=== PATIENT | female | born 1945 | race Caucasian/White ===

== ENCOUNTER → 2018-03-31 10:21 | Outpatient (CLI) | payer MEDICARE, OTHER, SELFPAY ==
[2018-03-31 12:04] LABS: Estimated Glomerular Filt Rate > 60.0 mL/min (>60)
== END ==
PROVIDERS: PCP Family Medicine; Visit Provider Podiatrist
DX: R22.9 Localized swelling, mass and lump, unspecified (principal); M79.675 Pain in left toe(s)
CPT/HCPCS: 36415; 82565

== ENCOUNTER → 2018-04-07 13:04 | Outpatient (CLI) | payer MEDICARE, OTHER, SELFPAY ==
--- NOTE | 2018-04-07 | DI.MRI.S_ITS ---
PROCEDURE: MR FOOT LT WO/W CON INDICATIONS: PAINFUL MASS LEFT SECOND TOE TECHNIQUE: Noncontrast sagittal T1 spin echo and T2 fast spin echo with fat saturation, long-axis T1 spin echo and T2 fast spin echo with fat saturation; short-axis T1 spin echo, proton density fast spin echo, and T2 fast spin echo with fat saturation through the forefoot. Post-contrast short axis, long axis, and sagittal T1 spin echo with fat saturation through the forefoot. COMPARISON: None FINDINGS: Image quality: Excellent. Bones and joints: No suspicious osseous enhancement. No bone marrow contusions or metatarsal stress fractures. The sesamoid bones appear in expected positions, without internal edema. No metatarsophalangeal joint degeneration. Mild articular osteophyte formation and subchondral high T2 signal intensity adjacent to the 1st tarsometatarsal joint is present. No intraosseous lesions. Soft tissues: The visualized plantar foot muscles demonstrate normal signal and bulk. Within the volar/lateral aspect of the 2nd digit, adjacent to the middle phalanx, there is a well-circumscribed low T1 signal intensity focus measuring 17 mm anteroposterior by 8 mm craniocaudal by 11 mm transverse which demonstrates possible postcontrast enhancement, and is adjacent to the flexor digitorum longus tendon. Small amount of punctate low signal intensity foci are present within the mass.. The distal insertions of the peroneus brevis and longus tendons appear intact. The principal Lisfranc ligament appears intact. No soft tissue ganglion cysts or bursal fluid collections. Sagittal images demonstrate no evidence for plantar plate tears. 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 Histological confirmation is recommended to exclude less likely, more aggressive etiologies. Dictated by: Alba Arana M.D. on 04/07/2018 at 14:38 Approved by: Alba Arana M.D. on 04/07/2018 at 14:46
== END ==
PROVIDERS: PCP Family Medicine; Visit Provider Podiatrist
DX: R22.42 Localized swelling, mass and lump, left lower limb (principal); R22.32 Localized swelling, mass and lump, left upper limb
CPT/HCPCS: 73720; A9579

== ENCOUNTER → 2018-06-08 11:17 | Outpatient (CLI) | payer MEDICARE, OTHER, SELFPAY ==
--- NOTE | 2018-06-08 | DI.MRI.S_ITS ---
PROCEDURE: MR LUMBAR SPINE WO CON INDICATIONS: LUMBAR SPINE PAIN TECHNIQUE: Noncontrast sagittal T1 spin echo and T2 fast echo, sagittal STIR, axial T1 and T2 fast spin echo through the lumbar spine. In cases with scoliosis, additional coronal T2 fast spin echo may be performed. COMPARISON: None. FINDINGS: Image quality: Excellent. Alignment and Curvature: Grade 1 anterolisthesis is seen at L4-L5 and L5-S1. No definite associated pars defects can be seen. Bone Marrow: Marrow is of normal overall signal. No acute vertebral body compression fractures. Spinal Cord: Conus medullaris terminates at the L1 level. Visualized cord demonstrates normal signal and size. Paraspinous Soft Tissues: No paravertebral masses. T12-L1: Normal appearance. L1-L2: Normal appearance. L2-L3: No significant abnormality is seen. L3-L4: The disc height is well-preserved. Loss of disc signal is seen at this level. Moderate disc bulge is seen, which is eccentric to the left. Moderate facet joint hypertrophy is seen. There is moderate left-sided and mild right-sided neural foraminal narrowing seen. Mild central canal narrowing is seen. L4-L5: The disc height is well-preserved. Loss of disc signal is seen at this level. Moderate disc bulge is seen. Moderate facet hypertrophy is seen. Fluid can be seen within the facet joints themselves. There is moderate to severe bilateral neural foraminal narrowing seen. There is a degree of impingement seen upon the exiting nerve roots. Moderate central canal narrowing is seen. L5-S1: Mild loss of disc height is seen. Loss of disc signal is seen. Moderate disc bulge is seen, which is eccentric to the left. Moderate facet joint hypertrophy is seen. Osqy-ni-[id number] neural foraminal narrowing can be seen. No significant central canal narrowing is seen. 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 IMPRESSION: Multiple levels of lumbar spine degenerative change are seen, which are most prominent at the L4-L5 level, where there is moderate to severe bilateral neural foraminal narrowing and impingement upon the exiting L4 nerve roots. Mild grade 1 anterolisthesis seen at L4-L5 and L5-S1. Dictated by: Morgan Adorno M.D. on 06/08/2018 at 11:48 Approved by: Morgan Adorno M.D. on 06/08/2018 at 11:54
== END ==
PROVIDERS: PCP Family Medicine; Visit Provider Physical Medicine & Rehabilitation Pain Medicine
DX: M48.061 Spinal stenosis, lumbar region without neurogenic claudication (principal); M43.16 Spondylolisthesis, lumbar region; M43.17 Spondylolisthesis, lumbosacral region; M51.36 Other intervertebral disc degeneration, lumbar region; M54.5 Low back pain
CPT/HCPCS: 72148

== ENCOUNTER → 2018-08-13 09:03 | Outpatient (CLI) | payer MEDICARE, OTHER, SELFPAY ==
--- NOTE | 2018-08-13 | DI.NM.S_ITS ---
PROCEDURE: NM BONE 3 PHASE RADIOPHARMACEUTICAL: 20.9 mCi Tc-99m MDP IV. INDICATIONS: MECHANICAL LOOSENING OF PROSTETIC JOINT RIGHT TIBI TECHNIQUE: Multiple bone scintigrams were obtained after intravenous injection of Tc-99m MDP, including flow, blood pool, and delayed images centered to the region of interest. COMPARISON: [facility] [place], CR, KNEE SERIES RT, 05/13/2017, 13:20. [facility], [facility], XR KNEE ARTHRITIC SERIES RT, 05/20/2018, 13:20. [facility] [place], CR, XR PELVIS WITH LATERAL HIP RIGHT, 07/26/2018, 15:11. FINDINGS: Photopenic defect related to right knee arthroplasty. There is periprosthetic tracer activity on the delayed phase images only. No definite abnormal tracer activity in this region on the immediate flow and blood pool images. Para-articular uptake about the right knee is likely degenerative. IMPRESSION: No definite triple phase positivity to suggest hardware loosening or infection. If clinically warranted, continued surveillance with serial knee radiographs could be performed. Dictated by: Juan Herrera M.D. on 08/13/2018 at 14:55 Approved by: Juan Herrera M.D. on 08/13/2018 at 15:01
== END ==
PROVIDERS: PCP Family Medicine; Visit Provider Orthopaedic Surgery
DX: T84.032A Mechanical loosening of internal right knee prosthetic joint, initial encounter (principal)
CPT/HCPCS: 78315; A9503

== ENCOUNTER → 2018-11-18 10:26 | Outpatient (CLI) | payer MEDICARE, OTHER, SELFPAY ==
[2018-11-18 11:02] LABS: Add Manual Diff / Slide Review NO; Basophils Percent Auto 0.8 % (0-2); Eosinophils Percent Auto 4.3 % (2-4); Hemoglobin 13.3 g/dL (12.0-16.0); Lymphocytes Percent Auto 26.5 % (25-40); Mean Corpuscular HGB Conc 33.3 % (30-36); Mean Corpuscular Hemoglobin 30.1 PG (26-34); Mean Corpuscular Volume 90.4 fL (80-100); Monocytes Percent Auto 8.1 % (3-14); Neutrophils Absolute Auto 4200 /uL (1500-7000); Neutrophils Percent Auto 60.3 % (50-75); Platelet Count 280 X10^3/uL (150-400); Red Blood Cell Count 4.42 X10^6/uL (4.0-5.2); Red Cell Distribution Width 14.5 % (11.6-14.8); White Blood Cell Count 6.9 X10^3/uL (4.5-11.0)
[2018-11-18 11:15] LABS: Alanine Aminotransferase 31 IU/L (9-52); Albumin 4.6 g/dL (3.5-5.0); Albumin Globulin Ratio 1.5 (1.0-2.8); Alkaline Phosphatase 78 U/L (38-126); Aspartate Aminotransferase 24 IU/L (14-36); BUN Creatinine Ratio 37.1 (6-22); Bilirubin Total 1.1 mg/dL (0.2-1.3); Blood Urea Nitrogen 26 mg/dL (7-17); Calcium 9.7 mg/dL (8.4-10.2); Carbon Dioxide 26 mmol/L (22-32); Chloride 105 mmol/L (98-107); Cholesterol 207 mg/dL (140-199); Estimated Glomerular Filt Rate > 60.0 mL/min (>60); Glucose 99 mg/dL (80-110); HDL Cholesterol 71 mg/dL (40-60); HEMOLYSIS < 15 (0-50); LDL Cholesterol Calculated 114 mg/dL (<100); Potassium 4.4 mmol/L (3.4-5.1); Sodium 141 mmol/L (137-145); Total Protein 7.6 g/dL (6.3-8.2); Triglycerides 108 mg/dL (35-150)
[2018-11-18 11:56] LABS: Thyroid Stimulating Hormone 1.15 uIU/mL (0.47-4.68)
== END ==
PROVIDERS: PCP Family Medicine; Visit Provider Family Medicine
DX: I10 Essential (primary) hypertension (principal)
CPT/HCPCS: 36415; 80053; 80061; 84443; 85025

== ENCOUNTER → 2019-03-02 12:00 | Outpatient (CLI) | payer MEDICARE, OTHER, SELFPAY ==
[2019-03-04 14:48] LABS: Fecal Immunochemical Test NOT DETECTED (NOT DETECTED)
== END ==
PROVIDERS: PCP Family Medicine; Visit Provider Family Medicine
DX: Z12.11 Encounter for screening for malignant neoplasm of colon (principal)
CPT/HCPCS: 82274

== ENCOUNTER → 2019-07-01 11:06 | Outpatient (CLI) | payer MEDICARE, OTHER, SELFPAY ==
--- NOTE | 2019-07-01 11:10 | DI.RAD.S_ITS ---
PROCEDURE: XR CHEST 2V INDICATIONS: Productive cough TECHNIQUE: 2 views of the chest were acquired. COMPARISON: [facility], , CHEST 2 VIEW, 12/10/2010, 13:00. FINDINGS: Surgical changes and devices: Postoperative changes are present related to prior left shoulder arthroplasty.. Lungs and pleura: Increased attenuation within the right lung base is identified when compared to the prior study. There is also vague increased attenuation at the left lung base. No large effusion or pneumothorax is appreciated. Mediastinum: Mediastinal contours are normal. Heart size is normal. Bones and chest wall: No suspicious bony abnormalities. Soft tissues appear unremarkable. IMPRESSION: Probable developing right basilar pneumonia. Dictated by: Rip Valle M.D. on 07/01/2019 at 11:05 Approved by: Rip Valle M.D. on 07/01/2019 at 11:06
== END ==
PROVIDERS: PCP Family Medicine; Visit Provider Registered Nurse
DX: R05 Cough (principal)
CPT/HCPCS: 71046

== ENCOUNTER → 2019-07-08 10:53 | Outpatient (CLI) | payer MEDICARE, OTHER, SELFPAY ==
--- NOTE | 2019-07-08 10:56 | DI.RAD.S_ITS ---
PROCEDURE: XR CHEST 2V INDICATIONS: Cough TECHNIQUE: 2 views of the chest were acquired. COMPARISON: [facility], CR, XR CHEST 2V, 07/01/2019, 11:29. FINDINGS: Surgical changes and devices: Total left shoulder arthroplasty Lungs and pleura: Lungs are clear. No pleural effusions or pneumothorax. Mediastinum: Mediastinal contours are normal. Heart size is normal. Bones and chest wall: No suspicious bony abnormalities. Soft tissues appear unremarkable. IMPRESSION: No evidence acute pulmonary process. Dictated by: Yonny Stuart M.D. on 07/08/2019 at 11:05 Approved by: Yonny Stuart M.D. on 07/08/2019 at 11:05
== END ==
PROVIDERS: PCP Family Medicine; Visit Provider Registered Nurse
DX: R05 Cough (principal)
CPT/HCPCS: 71046

== ENCOUNTER → 2019-09-01 12:23 | Outpatient (CLI) | payer MEDICARE, OTHER, SELFPAY ==
--- NOTE | 2019-09-01 | DI.MRI.S_ITS ---
PROCEDURE: MR SHOULDER RT WO CON INDICATIONS: Other rupture of muscle (nontraumatic), left shoul TECHNIQUE: Noncontrast oblique coronal T2 fast spin echo with fat saturation, oblique sagittal T1 spin echo and T2 fast spin echo with fat saturation, axial T1 spin echo and T2 fast spin echo with fat saturation through the shoulder. COMPARISON: [facility], MR, SHOULDER WITHOUT CONTRAST, 12/10/2016, 13:20. FINDINGS: Image quality: Excellent. Rotator cuff: Full thickness small tear of the anterior supraspinatus tendon image 10 series 10 measuring 1-2 mm in AP dimension. Background supraspinatus tendinopathy and thickening. Infraspinatus tendinopathy with low-grade articular surface fraying. The teres minor appears intact. Subscapularis tendon appears intact. atrophy of the supraspinatus muscle. Fat infiltration of the infraspinatus muscle noted. Bones and bursae: No bone marrow contusions or fractures. Moderate acromioclavicular joint degeneration. Severe glenohumeral joint degeneration with subchondral cystic change and marrow edema. Extensive osteophytosis. Acromion demonstrates conventional anatomy, without an os acromiale. Capsule and soft tissues: Ill-defined macerated circumferential labral tear probably chronic Long head of the biceps tendon intact. The rotator interval appears normal, without fibrosis. Coracohumeral ligament intact. IMPRESSION: Small full-thickness tear involving the anterior supraspinatus tendon. Atrophy of the supraspinatus muscle. Infraspinatus tendinopathy with low-grade articular surface fraying. Severe glenohumeral degeneration. Ill-defined chronic circumferential labral tear. Dictated by: Juan Herrera M.D. on 09/01/2019 at 16:20 Approved by: Juan Herrera M.D. on 09/01/2019 at 16:27
== END ==
PROVIDERS: PCP Family Medicine; Visit Provider Orthopaedic Surgery
DX: M62.1 Other rupture of muscle (nontraumatic) (principal); M75.122 Complete rotator cuff tear or rupture of left shoulder, not specified as traumatic; M19.012 Primary osteoarthritis, left shoulder; S43.492A Other sprain of left shoulder joint, initial encounter
CPT/HCPCS: 73221

== ENCOUNTER → 2019-10-20 09:37 | Outpatient (CLI) | payer MEDICARE, OTHER, SELFPAY ==
[2019-10-20 10:28] LABS: Add Manual Diff / Slide Review NO; Basophils Absolute Auto 100 /uL (0-100); Eosinophils Absolute Auto 300 /uL (0-450); Eosinophils Percent Auto 5.2 % (2-4); Hematocrit 39.2 % (36-46); Hemoglobin 13.4 g/dL (12.0-16.0); Lymphocytes Absolute Auto 1500 /uL (1100-4500); Lymphocytes Percent Auto 24.8 % (25-40); Mean Corpuscular HGB Conc 34.2 % (30-36); Mean Corpuscular Hemoglobin 30.8 PG (26-34); Mean Corpuscular Volume 90.3 fL (80-100); Monocytes Absolute Auto 600 /uL (0-900); Monocytes Percent Auto 9.3 % (3-14); Neutrophils Absolute Auto 3700 /uL (1500-7000); Neutrophils Percent Auto 59.7 % (50-75); Platelet Count 302 X10^3/uL (150-400); Red Blood Cell Count 4.34 X10^6/uL (4.0-5.2); Red Cell Distribution Width 13.8 % (11.6-14.8); White Blood Cell Count 6.2 X10^3/uL (4.5-11.0)
[2019-10-20 11:00] LABS: Blood Urea Nitrogen 28 mg/dL (7-17); Calcium 10.3 mg/dL (8.4-10.2); Carbon Dioxide 24 mmol/L (22-32); Chloride 103 mmol/L (98-107); Estimated Glomerular Filt Rate > 60.0 mL/min (>60); Glucose 121 mg/dL (80-110); HEMOLYSIS < 15 (0-50); Potassium 4.4 mmol/L (3.4-5.1); Sodium 139 mmol/L (137-145)
[2019-10-20 12:10] LABS: Hemoglobin A1C% w Est Avg Glu 5.6 % (4.0-6.0)
[2019-10-20 13:11] LABS: Appearance Urine UA SL CLOUDY; Bilirubin Urine UA NEGATIVE (NEGATIVE); Color Urine UA YELLOW; Glucose Urine UA NEGATIVE (Negative); Ketones Urine UA NEGATIVE (NEGATIVE); Leukocyte Esterase Urine UA TRACE (NEGATIVE); Nitrite Urine UA NEGATIVE (Negative); Occult Blood Urine UA NEGATIVE (Negative); Protein Urine UA NEGATIVE (Negative); Urobilinogen Urine UA 0.2 E.U./dL (0.2)
[2019-10-20 13:19] LABS: RBC Urine 0-1/HPF (0-5/HPF); WBC Urine 1-5/HPF (0-5/HPF)
[2019-10-20 13:20] LABS: Bacteria Urine Few (2-10); Culture Indicated Urine Cult Not Indicated; Squamous Epithelial Cell Urine 5-10 /HPF (0-5/HPF)
== END ==
PROVIDERS: Family Provider Family Medicine; PCP Family Medicine; Visit Provider Orthopaedic Surgery
DX: Z01.818 Encounter for other preprocedural examination (principal); Z01.812 Encounter for preprocedural laboratory examination; R73.9 Hyperglycemia, unspecified; N39.0 Urinary tract infection, site not specified
CPT/HCPCS: 36415; 80048; 81001; 83036; 85025; 93005; 93010

== ENCOUNTER 2019-10-31 10:43 | Inpatient (IN) | payer MEDICARE, OTHER, SELFPAY ==
[2019-10-19 12:30] VITALS: BMI 48.6
[2019-10-31] VITALS (14 sets, daily range): BP systolic 100–166; BP diastolic 54–86; PULSE 83–98; RESP 14–22; TEMP 35.8–36.5; O2SAT 93–99; BMI 50.4
--- NOTE | 2019-10-31 10:52 | DI.RAD.S_ITS ---
PROCEDURE: XR SHOULDER RT 1V INDICATIONS: post op TECHNIQUE: 1 views of the shoulder were acquired. COMPARISON: [facility], , SHOULDER 1 VIEW LEFT, 02/17/2017, 16:41. FINDINGS: Expected postsurgical changes are present related to a reversed total shoulder arthroplasty. No periprostatic fractures are appreciated. No unexpected radiopaque foreign bodies are evident. A surgical drainage catheter is evident. There appears to be atelectasis within the right lung. IMPRESSION: Postoperative changes related to a right shoulder arthroplasty. Dictated by: Rip Valle M.D. on 10/31/2019 at 14:26 Approved by: Rip Valle M.D. on 10/31/2019 at 14:31
--- NOTE | 2019-10-31 11:03 | SUR.PREOP ---
Activated medication order in spite of PCN allergy in order to obtain PO medications.
[2019-10-31] MEDS: ACETAMINOPHEN 325 MG TABLET 975 MG PO ×3 (11:27→21:42)
[2019-10-31] MEDS: PREGABALIN 75 MG CAPSULE PO (11:27)
[2019-10-31] MEDS: CELECOXIB 200 MG CAPSULE PO (11:27)
[2019-10-31] MEDS: LACTATED RINGERS 1,000 ML 42 ML IV (11:29)
--- NOTE | 2019-10-31 12:18 | PM.PREOP ---
Pre-operative Note Interval Note History & Physical reviewed/Exam performed by Physician: Yes Changes to H&P: No
--- NOTE | 2019-10-31 12:24 | PM.OP.1 ---
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 Radiographic studies have revealed changes consistent with a rotator cuff tear and arthritis. They have elected to proceed with reverse total shoulder replacement after discussion of the risks benefits and alternatives. Risks discussed included but were not limited to: Failure to improve, instability, infection, nerve damage, deep venous thrombosis, pulmonary embolism, stroke, coma, myocardial infarction and . Surgeon: Wing Boss [employer] Processor: Garfield Mckeon Click Yes if Unassisted: No Anesthesia Type: General, Peripheral nerve block and Local Operative Notes Findings: Significant osteoarthritic change with large rotator cuff tear Closure Type: primary Specimen(s): none sent Prosthetic devices, grafts, tissues, transplants, or devices: Prosthetics used in this procedure were manufactured by the [employer] and included an RSP reverse total shoulder system with a 30 mm screw length glenoid base plate with 4 peripheral 14 mm locking bolts, a 36 mm neutral glenoid head with retaining screw, a small shell 10 mm Press-Fit humeral stem, and a 36 mm neutral E plus humeral socket insert. Applied: drain(s) and implant(s) Estimated Blood Loss (mL): 100 Blood products transfused: none Procedure in detail: The patient was seen in the preoperative area where they identified the right shoulder as the operative site and this was marked with my initials. They received preoperative antibiotics and underwent the induction of an interscalene block. They were taken to the operating room and placed on the operating room table in a supine position with the underwent the induction of a general anesthetic. There were then repositioned in the ?beach chair? position using a dedicated positioner. All pressure points were well padded. The knees were slightly bent to prevent tension on the sciatic nerves. The right arm was prepared from the fingertips to the base of the neck with ChloraPrep in the usual fashion and draped through sterile drapes. An approximately 15 cm incision was created starting at the clavicle just above the coracoid and going to the deltoid insertion. The deltopectoral interval was used to access the shoulder taking the vein to the medial side. The vein was protected throughout the case. The upper 1 cm of the pectoralis major was released. The biceps tendon was identified and used as a guide to releasing the remaining subscapularis. The biceps itself was released. The shoulder was dislocated and a proximal humeral osteotomy performed using an extramedullary guide. A proximal humeral protector was then placed. Retractors were placed access the glenoid. A 360 degree release was performed of the glenoid with care being taken to protect the axillary nerve. The guide was used to drill the guide hole in the center of the inferior glenoid. The tap was placed and used as a guide for the reamer. The tap was then removed and the glenoid base plate inserted. The peripheral locking screws were then placed through the appropriate guide. A trial glenoid head was applied. We then turned our attention to the humerus. The proximal humeral protector was removed. Cylindrical reamers were used to size the canal. Broaching was then performed beginning with a small broach and working up until a line to line fit with the reamer was obtained. The guide for the proximal metaphyseal reamer was then applied and the metaphysis was reamed appropriately. The trial metaphyseal portion of the body was then applied to the broach. Trial reductions were performed and the size of the glenoid head and the cup were optimized. Stability was checked in maximal internal and external rotation and range of motion was checked to allow access to the top of the head, internal rotation to an excess of 50? in the ?scarecrow position? and the ability to reach the groin. The appropriate final prosthetic components were then opened. The glenoid head was impacted into position and checked for rotational and axial stability before placing the set screw. The humeral prosthetic was then impacted into position. The humeral cup was placed. The joint was relocated and irrigated. A deep drain was placed. The deltopectoral interval was reapproximated with 0 Vicryl. Subcutaneous layer was closed with interrupted 3-0 Vicryl and skin with a running 3 0 V lock suture. Subcutaneous tissues were then infiltrated with 0.5% Marcaine for postoperative pain control. An Aquacel Ag dressing was applied and the patient's arm was placed in a sling. The patient was then transferred to the recovery room in good condition having tolerated the procedure well. Complications: none Post-operative Condition: stable Disposition: PACU Plan for aftercare: The patient will be maintained on a standard total shoulder replacement protocol with passive range of motion limited to 90 degrees forward flexion, 0 degrees external rotation at the side, 0 degrees abduction and internal rotation to the body. The patient will receive aspirin and sequential compression devices for DVT prophylaxis. The patient will be discharged home when safe for the home environment, likely tomorrow.
[2019-10-31] MEDS: VANCOMYCIN 1,000 MG/200 ML PIGGYBACK 200 MG IV (12:28)
[2019-10-31] MEDS: fentaNYL 100 MCG/2 ML INJ 50 MCG IV (12:40)
[2019-10-31] MEDS: MIDAZOLAM 2 MG/2 ML VIAL IV (12:46)
--- NOTE | 2019-10-31 12:54 | SUR.PREOP ---
Addendum entered by Johanne Manriquez R.N. 10/31/19 13:02: Patient awake and alert during procedure. No complications noted. Addendum entered by Johanne Manriquez R.N. 10/31/19 12:58: Block was started by Nurse Joshua Major. Block completed by Jolie Manriquez RN Original Note: Block start time [1230] . Monitoring initiated and maintained throughout procedure. Oxygen and medications given per anesthesiologist instructions. Patient remained stable throughout procedure, no adverse reactions noted. Block end time [1250].
[2019-10-31] MEDS: TRANEXAMIC ACID 1,000 MG VIAL 1000 MG INJ ×2 (13:30→14:29)
--- NOTE | 2019-10-31 13:48 | SUR.OPER ---
Beach chair with Schlein shoulder positioner. Lower body on padded OR bed. Head in foam padded head cradle, secured with straps. Non-operative arm secured <90 degrees abduction. Pillow under knees. Safety belt at thigh. Cloth tape over blanket over lower legs.
[2019-10-31] MEDS: BUPIVACAINE 0.5% W/ EPI (PF) 30 ML VIAL INJ (14:00)
--- NOTE | 2019-10-31 14:11 | P.PCN_ITS ---
Procedures Date/Time Date of procedure: 10/31/19 Time of procedure: 12:57 Nerve Block Time out performed: Yes Local anesthetic used: other (15mL 0.5opivacaine, 5mL 2* idocaine) Location of anesthetic used: interscalene Amount of anesthesia used (mL): 20 Nerve blocks: brachial plexus (interscalene) Procedure successful: Yes Patient tolerated procedure: well Complications: none Additional comments: Brachial plexus nerve block for post operative pain management. Risks and benefits discussed, including bleeding, infection, intravascular injection, nerve damage, block failure. Standard ASA monitors, NC O2. Pt supine. Chloroprep site preparation, sterile technique. Brachial plexus identified with US guidance, traced from supraclavicular to interscalene. 1mL 2% lidocaine skin wheal. 22g x 50mm Pajunk advanced with in-plane US guidance to brachial plexus. Negative aspiration. LA injected with intermittent negative aspiration. Good LA spread noted on US. No pain, no paraesthesia. Pt tolerated procedure well. Vital signs stable.
[2019-10-31] MEDS: LACTATED RINGERS 1,000 ML 125 ML IV (16:39)
--- NOTE | 2019-10-31 17:20 | PT-IP ANOTE ---
PT orders received but pt just having dinner upon PT arrival with multiple visitors in room. Will initiate evaluation morning of 11/01
[2019-10-31] MEDS: ASPIRIN EC 81 MG TABLET PO (21:43)
[2019-10-31] MEDS: FLUTICASONE 120 SPRAY/16 GM SPRAY.SUSP NASAL (21:43)
[2019-10-31] MEDS: LISINOPRIL 10 MG TABLET 20 MG PO (21:43)
[2019-10-31] MEDS: cefUROXime 250 MG TABLET 500 MG PO (21:44)
--- NOTE | 2019-10-31 23:25 | PC.NURSE ---
Admit/Evening Shift Note- Patient arrived to room via bed from pacu at 1550. Admission questions done, home medications reviewed, physical assessment completed. patient oriented to room, bed and bed controls, lights, phone,menu, bathroom,and call riggins/tv remote. No complaints of pain or discomfort. safety measures in place. Patient agrees to call for assistance. call riggins and phone within reach. will continue to monitor.
[2019-11-01] MEDS: LACTATED RINGERS 1,000 ML 125 ML IV (02:59)
[2019-11-01] MEDS: OXYCODONE IR 5 MG TABLET PO (04:08)
[2019-11-01 05:00] VITALS: BP 98/56; PULSE 81; RESP 20; TEMP 36.6; O2SAT 97
[2019-11-01 05:05] VITALS: BP 161/76
[2019-11-01 05:10] VITALS: BP 144/69
[2019-11-01 05:12] LABS: Hemoglobin 11.7 g/dL (12.0-16.0)
--- NOTE | 2019-11-01 06:05 | PC.NURSE ---
Patient VSS, Lung sounds clear, pain 3/10 and 5mg Oxycodone given Q3. Patient's CMS is intact, dressing is clean, dry and intact. Hemovac producing serous output. Sling applied to right arm. SCD's applied, bed is in low position, call light is within reach.
--- NOTE | 2019-11-01 06:15 | P.DS_ITS ---
History of Present Illness History of Present Illness Date Patient Seen: 11/01/19 Time Patient Seen: 06:15 Chief complaint: [id number] Narrative: The history and physical are contained in the chart previously completed note. Please refer to that note for this information. Discharge Providers Provider Date of admission: 10/31/19 10:43 Discharge Date: 11/01/19 Primary care physician: Shakir Perez MD Consults: 10/31/19 12:10 Consult to Respiratory Therapy Evaluate & Treat Comment: brought CPAP; obese Physician Instructions: Evaluate and treat 10/31/19 16:09 Consult to Discharge Planning Routine Comment: Consult to Physical Therapy Evaluate & Treat Comment: Physician Instructions: Evaluate and Treat Consult to Respiratory Therapy Evaluate & Treat Comment: Physician Instructions: Evaluate and treat Discharge provider: Wing Boss MD Summary Hospital Course Discharge Diagnosis: 1. Right shoulder osteoarthritis 2. Right shoulder rotator cuff tear 3. Post hemorrhagic anemia 4. Morbid obesity Hospital Course: The patient was admitted to the hospital and taken directly to the operating room on October 31, 2019. She underwent a right reverse total shoulder replacement to treat her arthritis and rotator cuff tear. She tolerated the procedure well. She did have difficulty with the interscalene block. 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 She was carefully monitored postoperatively in this resolved as the block wore off. On postoperative day 1 it is anticipated she will be ready for discharge home to day. Status at Discharge Cognitive/behavioral status at discharge: oriented Functional status at discharge: independent ambulation Overall status at discharge: patient is progressing back to baseline Time Spent with Patient Time spent: Less than 30 minutes Exam Vital Signs (past 8 hours): - 10/31/19 23:30 11/01/19 05:00 11/01/19 05:05 Temperature 97.7 F 97.9 F Pulse Rate 91 H 81 Respiratory Rate 14 20 Blood Pressure 100/54 L 98/56 L 161/76 H Pulse Oximetry 94 97 11/01/19 05:10 Temperature Pulse Rate Respiratory Rate Blood Pressure 144/69 H Pulse Oximetry Oxygen Delivery Method Nasal Cannula Oxygen Flow Rate 2 Narrative Exam Narrative: Right upper extremity wound is dressed with no drainage on the bandage. Light touch is intact in the radial, ulnar, median, muscular cutaneous and axillary nerve distributions. She can extend her thumb, abduct her thumb, abduct her fingers and can fire her biceps and deltoid. Objective Labs Result Diagrams: 11/01/19 04:40 Labs: Laboratory Results - last 24 hr 11/01/19 04:40 Hgb 11.7 L Hct 35.0 L Discharge Plan Discharge Plan Patient Disposition: Home Discharge orders & Medications Prescriptions: New acetaminophen 325 mg Tablet 975 mg PO TID 30 Days Qty: 270 RF: 0 aspirin 81 mg Tablet,Delayed Release (Dr/Ec) 81 mg PO BID 42 Days Qty: 84 RF: 0 oxycodone 5 mg Tablet 5 mg PO Q4HR Qty: 40 RF: 0 Continued multivitamin Capsule 1 cap PO DAILY Qty: 0 RF: 0 cholecalciferol (vitamin D3) [Vitamin D3] 1,000 unit Capsule 1,000 units PO QDAY Qty: 0 RF: 0 ferrous fumarate 89 MG tablet 65 mg PO QDAY Qty: 0 RF: 0 diphenhydramine-acetaminophen [Acetaminophen PM] 500 MG/25 MG tablet 1 ea PO HSP PRN (Reason: Sleep) Qty: 0 RF: 0 duloxetine [Cymbalta] 30 mg capsule,delayed release(DR/EC) 60 mg PO QDAY Qty: 360 RF: 2 levothyroxine 125 mcg tablet See Rx Instructions .ROUTE .COMPLEX Qty: 90 RF: 1 meloxicam 15 mg tablet See Rx Instructions .ROUTE .COMPLEX Qty: 90 RF: 0 vitamin B complex tablet 1 tab PO DAILY RF: 0 biotin 1 mg capsule 1 mg PO DAILY RF: 0 cefuroxime axetil 500 mg tablet 500 mg PO BID Qty: 30 RF: 2 furosemide 20 mg Tablet 20 - 40 mg PO DAILY PRN (Reason: Edema) RF: 0 fluticasone propionate 50 mcg/actuation [place],Suspension 2 spray INTRANASAL BEDTIME RF: 0 cyclobenzaprine 10 MG tablet 10 mg PO Q DAY PRN (Reason: Muscle cramps) RF: 0 lovastatin 40 mg tablet 80 mg PO QAM RF: 0 triamcinolone acetonide 0.1 % cream See Rx Instructions .ROUTE .COMPLEX RF: 0 clotrimazole-betamethasone [Lotrisone] 15 GM cream 1 gulshan Topical BID PRN (Reason: Itching skin) RF: 0 lisinopril 10 mg tablet 20 mg PO BID RF: 0 docusate sodium 100 mg Capsule 100 mg PO DAILY RF: 0 turmeric root extract 500 mg Capsule 500 mg PO DAILY RF: 0 Discontinued hydrocodone-acetaminophen 5-325 mg Tablet 1 tab PO DAILY PRN (Reason: Pain) RF: 0 aspirin [Aspir-81] 81 mg Tablet,Delayed Release (Dr/Ec) 81 mg PO DAILY RF: 0 ibuprofen 200 mg Tablet 200 mg PO Q6H PRN (Reason: Back Pain) RF: 0 Follow up/Referrals: Shakir Perez MD [Primary Care Provider] - Wing Boss MD [Physician] - 2 Weeks Discharge Health Status Multidrug resistant organism: No MDRO Diet/Activity/Treatments Diet: Diet as Tolerated and Regular Activity: You may use your right hand in front of your body below shoulder level. You may do pendulum exercises. Keep the sling on except for hygiene and pendulums until follow up. Cold/Heat Therapy: Apply ice to the right shoulder for 15 minutes of every hour as needed for pain control. Skin/Wound/Dressing Care Report to your healthcare provider any signs of infection, such as:: chills, fever, night sweats, increased pain, unusual drainage and unusual redness Dressing: Leave the dressing in place until follow-up. You may shower with the dressing in place. Please call the office of the central slip of the dressing becomes saturated with either water or blood. Visit Report/Discharge Packet Instructions: DI for Prescription Opioid Use, DI for Shoulder Replacement Stand Alone Forms: Surgery Discharge Discharge Data Primary Care Provider: Shakir Perez
[2019-11-01 06:20] VITALS: O2SAT 95
[2019-11-01 07:20] VITALS: BP 149/82; PULSE 85; RESP 18; TEMP 36.4; O2SAT 97
[2019-11-01] MEDS: POLYETHYLENE GLYCOL 3350 17 GM POWD.PACK PO (08:44)
[2019-11-01] MEDS: ACETAMINOPHEN 325 MG TABLET 975 MG PO (08:45)
[2019-11-01] MEDS: LISINOPRIL 10 MG TABLET 20 MG PO (08:45)
[2019-11-01] MEDS: VITAMIN B COMPLEX 1 CAPSULE 1 CAP PO (08:45)
[2019-11-01] MEDS: MULTIVITAMIN 1 TABLET 1 TAB PO (08:45)
[2019-11-01] MEDS: DOCUSATE 100 MG CAPSULE PO (08:45)
[2019-11-01] MEDS: cefUROXime 250 MG TABLET 500 MG PO (08:47)
[2019-11-01] MEDS: ASPIRIN EC 81 MG TABLET PO (08:47)
[2019-11-01] MEDS: DULOXETINE 30 MG CAPSULE 60 MG PO (08:47)
[2019-11-01] MEDS: IBUPROFEN 200 MG TABLET PO (08:48)
[2019-11-01] MEDS: LOVASTATIN 20 MG TABLET 80 MG PO (08:48)
--- NOTE | 2019-11-01 09:01 | CM.DANOTE ---
DCP/Assessment: Reviewed chart. Patient is a 74yr old female admitted to [facility] for right TSA performed on 10-[address] Boss. PCP is Dr. Perez. Primary payor is 1)Medicare 2)[employer]. Met with patient explained CM/SW role. Patient alert and oriented, sitting in recliner at time of visit. Patient had just completed therapy session. Therapy reports that patient did great. No barriers to discharge. Patient uses C-Pap at night and has all needed DME from previous surgery done on opposite shoulder. Spouse expected to pick patient up later this morning. No identified d/c planning needs. P: Home today. SAILAJA Santamaria Discharge Planning/Care Management CM Discharge Assessment Start: 11/01/19 08:59 Freq: Status: Active Protocol: Document 11/01/19 08:59 KJS (Rec: 11/01/19 09:01 KJS [id number]) Discharge Planning Assessment Assigned Gamma Facilities Operator SAILAJA Santamaria Contact Information Glenroy Curtis (spouse) Advance Directives? No Advance Directives on File No History Provided By Patient,Medical Record Prior Living Arrangements House Household Members spouse Type of transporation used prior to Drives own vehicle admit Independent with ADL's Yes: Uses cane prn Is patient alert and oriented? Yes Caregiver for Another No DME Already Rented / Owned Cane Barriers to Discharge No Discharge Plan Home Transportation Arrangement Family to provide transport Referrals Initiated None needed Whiteboard Updated in Patient Room with Yes name and ext. # of Gamma Facilities Operator Review Status In Process Next Review Type Continued Stay Review Pre-Anesthesia Assessment Start: 10/19/19 12:30 Freq: Status: Complete Protocol: Document 10/19/19 12:30 CAB (Rec: 10/19/19 12:58 CAB [id number]) Pre-Anesthesia Assessment Patient Information Reviewed Via Phone Assessment Assessment Completed With Patient Diagnostic Results BMP/CMP,CBC,EKG,Urinalysis Comment Labs/EKG @ 10/20/19 Primary Care Provider Shakir Perez Seen Specialist in Last 12 Months Yes Specialist Seen Orthopedist Primary Language Nigerian Sterile Instrument Technician Required No Height 164.47 cm Weight 131.542 kg Body Mass Index (BMI) 48.6 Hearing Ability Normal Visual Assist Magnifying Glass Dentition Type Teeth, Natural Present,Teeth, Missing Barriers to Learning None Other Aids Yes: CPAP Hx Anesthesia Reactions Yes: PONV, loss of memory of prior 4 days s/p hysterectomy 1988 Hx Family Anesthesia Reaction No Hx Malignant Hyperthermia No Hx Blood Transfusions No Anesthesia Review Requested No alcohol intake former Alcohol Intake Frequency Other: None Smoking Status Former smoker Tobacco type cigarettes how long ago did patient quit smoking Quit 1987 Substance Use Type does not use Musculoskeletal Symptoms Back Pain,Joint Pain,Limited Range of Motion,Neck Pain History of Falling (Recent or History of Yes ) Patient is completely paralyzed or No completely immobile Prosthesis or Orthotic Device Cane Mental Status Oriented to own ability Is patient on oxygen? No Does patient have ROMERO/SOB No Hx Sleep Apnea Yes CPAP/BIPAP use prescribed and used routinely Will Bring CPAP/BIPAP DOS Yes Currently Taking a Beta [place] No Can You Climb a Flight of Stairs Without No SOB Hx Chest Pain No Hx SOB No Hx Syncope or Dizziness No Anti-Coagulant Therapy No Has a Supervisor Sheet Manufacturing No Cardiac Testing No Hx Pacemaker/ICD No Pacemaker Rep Required? No Diet Type At Home Regular dysphagia No Bladder Pattern Incontinent, Stress,Urgency Urinary Catheter Present No Hx Urinary Self Catheterization No Diabetes No HgbA1C 5.6 Date 10/20/19 Patient No Lactating No Hx Drug Resistant Organism No Presence of External or Internal Medical Yes: CPAP, bilat eye lens, lap Devices band, left shoulder, right knee prosthesis Have you traveled outside the [facility] States in the last 30 days? Marital Status Lives With spouse Prior Living Arrangements House Number of Floors (Floors) One Floor Support System Child/Children,Spouse Does the Patient Have Assistance After Yes Surgery Patient Discharge Plan Description Return Home Feels Safe in Current Environment Yes Been Physically Hurt or Threatened By a No Person in Current Environment Do you have thoughts of harming yourself None or others? Are you currently considering suicide? No Do you have a plan to hurt yourself or No Plan others? Do You Have Any Spiritual Beliefs That No May Affect Your HC Choices? Do You Have Any Cultural Practices That No May Affect Your HC Choices? Who Can We Speak to About Patient's Care Family, friends Identifying Code for Release of Patient Declines to issue Information Health Care Proxy/Next of Kin Glenroy () Health Care Proxy Emergency Contact Name Glenroy () Emergency Contact Advance Directives? No Power of Safety Associate No PAC Instructions Bring CPAP/BIPAP,Durable medical equipment,Medications to take/avoid,Nasal antibiotic ,No ETOH/petroleum product on skin DOS,NPO,Post-op transportation,Pre-surgical wash,Sturdy shoes/comfortable clothes,Do not bring valuables and remove jewelry
--- NOTE | 2019-11-01 09:49 | PT.IIE ---
Current Diagnoses Sleep apnea, unspecified (10/31/19) Primary osteoarthritis, right shoulder (10/31/19) Complete rotator cuff tear or rupture of right shoulder, not specified as traumatic (10/31/19) Surgery Performed Operation Date: 10/31/19 13:15 Actual Procedures p Total Shoulder Arthroplasty - Reverse(Right) - Wing Boss MD Surgical History (Last Updated 10/19/19 @ 13:24 by Heather Ray RN) Anesthesia (Resolved) History of arthroplasty of left shoulder (Acute 02/17/17) History of knee replacement (~2002) Hx of bilateral cataract extraction (Acute ~2016) Hx of laparoscopic gastric banding (Resolved ~2011) Status post hysterectomy (~1988) Medical History (Last Updated 10/19/19 @ 12:49 by Heather Ray RN) Anemia (Chronic ~1952) Ankle pain (Chronic ~2009) Arthritis (Chronic ~2000) Chicken pox (Resolved ~1949) Depression (Chronic ~1959) Eczema (Chronic ~2009) Endometriosis (Chronic ~1979) Fibroids (Chronic ~1979) Fibromyalgia (Chronic ~1979) Foot pain (Chronic ~1959) Heavy menstrual period (Chronic ~1979) Hemorrhoid (Chronic ~1961) HLD (hyperlipidemia) (Acute) HTN (hypertension) (Acute) Hyperthyroidism (Chronic ~1965) Measles (Resolved ~1949) Migraines (Chronic ~1949) Retinal tear (Chronic ~2011) Rosacea (Chronic ~2014) Shoulder pain (Chronic ~2009) Sleep apnea (Chronic ~2011) Tinnitus (Chronic ~2012) Physical Therapy Inpatient Evaluation/Re-Eval M1 PT/OT-IP Prior Functional Status Start: 11/01/19 08:13 Freq: NEEDED Status: Active Protocol: Document 11/01/19 08:42 AW (Rec: 11/01/19 09:49 AW [id number]) Medical Review Prior Functional Status Medical History Reviewed Yes Diet/Fluid Consistency Regular Communication WNL Mobility and Gait Pt was modified independent with use of SPC held in her R UE. She states she used the cane ~50% of the time. She has been practicing using the cane held in the L UE in preparation for this surgery. She occasionally used an electric cart for longer shopping trips. Activities of Daily Living and IADL's Pt required assist from her for dressing and bathing due to limited R shoulder range of motion. She was modified independent for toileting with use of a bottom francisca. Prior Functional Level (Other details) Pt has not driven for the past 4 months due to increasing shoulder pain. Social History Household Members spouse Living Arrangements House Number of Floors (Floors) One Floor Number of Stairs To Enter/Railing? 3 [place] with right rail ascending. Inside, the home is one level, but the library and sewing room are sunken with three steps down, no railing. Home Environment Standard Height Toilet,Walk in Shower,Built-In Shower Seat Home Equipment Front Wheel Walker,Four Wheel Walker,Straight Cane,Crutches, Manual Wheelchair,Hand Held Shower,Long Handled Shoe Horn, Educational Aide,Hospital Bed Additional Social History Comment Pt lives with her spouse, Jean, who is able and available to help 01/06. She regularly sleeps in a recliner. M2 PT-IP Current Condition Start: 11/01/19 08:13 Freq: NEEDED Status: Active Protocol: Document 11/01/19 08:42 AW (Rec: 11/01/19 09:49 AW [id number]) Physical Therapy Current Condition Current Condition Evaluation Date 11/01/19 Treatment Diagnosis s/p R TSA; impaired mobility and ADL's Precautions Shoulder Precautions Sling,PROM,Internal Rotation to Body,No External Rotation, No Abduction,Forward Flexion to 90 degrees,Pendulums Brace sling on at all times Weight Bearing Status Weight Bearing Status Full Weight Bearing M3 PT-IP Subjective Start: 11/01/19 08:13 Freq: NEEDED Status: Active Protocol: Document 11/01/19 08:42 AW (Rec: 11/01/19 09:49 AW [email or web address]) Subjective Physical Therapy Visit Type Type Initial Evaluation Visit Start Time 08:17 Visit Stop Time 08:37 Total Visit Minutes 20 Number of IT SYSTEMS ENGINEER Visits 0 Physical Therapy Visit Comments Patient Comments Pt is anxious to get home and happy to mobilize with PT Patient Goals To go home today Therapy Pain Assessment Pain When Pain Assessed At Rest Pain Present Pain Present Denied Pain M4 PT-IP Mobility and Gait Start: 11/01/19 08:13 Freq: NEEDED Status: Active Protocol: Document 11/01/19 08:42 AW (Rec: 11/01/19 09:49 AW [email or web address]) PT-Transfer Assessment Sit to and From Stand Sit to and from Stand Independent Equipment Transfer Assistive Device Straight Cane Orthotic/Prosthetic Devices or Brace: Yes Transfers Transfer Destination Chair Transfer Technique pt ambulated with SPC Transfer Ability Level of Assist Independent Comments Mobility Comments Pt required no assist for sit to stand or transfers. The sling is properly positioned and there is no evidence of active shoulder movement with any activity. Gait Assessment Gait Gait Assistance Required: Independent Distance (Feet) 250 Able to Maintain Weight Bearing Status Yes During Gait Assistive Devices Assistive Device Straight Cane Orthotic/Prosthetic Devices or Brace: Yes Gait Deviations General Gait Pattern Decreased Stride Length,Wide Based Gait Factors Limiting Gait Function Factors Limiting Gait Function Limited Range of Motion,Pain Comments Gait Comments Pt demonstrated good patterning with use of SPC held in L UE. She denied shortness of breath or lightheadedness. Stair Climbing Assessment Evaluation Level of Assist On Stairs Contact Guard Assistance Devices Stair Climbing Assistive Devices Right Railing Technique/Endurance Stair Climbing Direction Ascend and Descend Stair Climbing Technique Step to Step Number of Steps Climbed 3 Query Text: Stair Climbing Set # Repetitions (reps) 2 Comments Stair Climbing Comments Pt ascended and descended with BROADBAND TECHNICIAN as she would at home, with step over step pattern ascending and step-to pattern descending. PT-Balance Assessment Sitting Balance and Reactions Static Sitting Balance Ability Normal Dynamic Sitting Balance Ability Normal Standing Balance and Reactions Static Standing Balance Ability Good Dynamic Standing Balance Ability Good Device Used SPC M5 PT-IP Objective Assessments Start: 11/01/19 08:13 Freq: NEEDED Status: Active Protocol: Document 11/01/19 08:42 AW (Rec: 11/01/19 09:49 AW [email or web address]) Orientation Orientation/Cognition Level of Alertness Alert Orientation Name,Day of Week,Place, Situation Language Function Ability No Deficits Noted Safety Awareness Understands Safety Issues Memory Description No Deficits Noted Gross Range of Motion Upper Extremity ROM Assessment Right Impaired Lower Extremity ROM Assessment Within Functional Limits Strength Upper Extremity Strength Assessment Right Impaired Lower Extremity Strength Assessment Within Functional Limits Coordination Assessment Gross Coordination Gross Coordination WNL Sensation Assessment Sensation Gross Sensation WNL Muscle Tone Muscle Tone WNL Yes M6 PT-IP Treatment Start: 11/01/19 08:13 Freq: NEEDED Status: Active Protocol: Document 11/01/19 08:42 AW (Rec: 11/01/19 09:49 AW [email or web address]) Physical Therapy Treatment Exercises Exercises Shoulder Pendulums,Elbow Flexion/Extension,Wrist ROM, Hand ROM Education Education Provided Precautions,Weight Bearing Status,Post-Op Packet,Safety Brace Education [place],Patient Other Treatments Other Treatment Performed Educated pt on PT plan of care , post-op precautions, sling at all times, donning and doffing sling, ADL's, AROM elbow/wrist/hand, and shoulder pendulums. Left pt with handout describing same. M7 PT-IP Assessment and Plan Start: 11/01/19 08:13 Freq: NEEDED Status: Active Protocol: Document 11/01/19 08:42 AW (Rec: 11/01/19 09:49 AW [email or web address]) PT Summary Assessment and Plan Potential Rehabilitation Potential Excellent Status of Condition at Evaluation Stable Summary Impairments Pain,ROM,Strength,Gait Assessment Summary Luther is a 74 yo right- handed woman with history of L TSA who was seen for PT evaluation on POD1 following R TSA. Prior to admission, she was modified independent for mobility with SPC ~50% of the time. She needed assist for dressing and bathing but was mod independent for toileting. She typically used her cane held in the R UE but has practiced ambulation with the cane in the L UE. Her spouse is able and available to assist as much as needed. On evaluation, Luther was ( modified) independent with all mobility with the exception of CGA/BROADBAND TECHNICIAN for stairs. Pt's spouse is able to provide this assist at home. Pt demonstrates good safety awareness and is able to function within the parameters of her shoulder precautions with assist. She is safe to discharge home with spouse assist and outpatient PT when medically stable. Frequency of Treatment Frequency Of Treatment Discharge Recommendations To Nursing Amount of Assist Needed Independent Discharge Recommendations PT Discharge Recommendations Home with Assistance, Outpatient PT
--- NOTE | 2019-11-01 10:40 | PC.NURSE ---
Pt states that her pain is a 3/10. Given Ibuprofen and Tylenol. Worked with physical therapy and tolerated well. Patient has been discharged from the hospital and will be going home around 1100. She has an aquacel to her R.shoulder with sling in place. is visiting and will be her ride home.
== END 2019-11-01 11:29 | disposition home or self-care (01) | DRG 483 ==
PROVIDERS: Admitting Provider Orthopaedic Surgery; Family Provider Family Medicine; PCP Family Medicine; Visit Provider Orthopaedic Surgery
PROC: 0RRJ00Z Replacement of Right Shoulder Joint with Reverse Ball and Socket Synthetic Substitute, Open Approach (ICD-10-PCS; CPT 23472; principal; 2019-10-31 13:15)
DX: M19.011 Primary osteoarthritis, right shoulder (principal); Z68.43 Body mass index [BMI] 50.0-59.9, adult; G47.33 Obstructive sleep apnea (adult) (pediatric); E66.9 Obesity, unspecified; E03.9 Hypothyroidism, unspecified; I10 Essential (primary) hypertension; M79.7 Fibromyalgia; F32.9 Major depressive disorder, single episode, unspecified; E66.01 Morbid (severe) obesity due to excess calories; I25.10 Atherosclerotic heart disease of native coronary artery without angina pectoris; Z96.612 Presence of left artificial shoulder joint; M75.111 Incomplete rotator cuff tear or rupture of right shoulder, not specified as traumatic
CPT/HCPCS: 36415; 64450; 73020; 85014; 85018; 97161; C1776; J1100; J2250; J2405; J2704; J3010

== ENCOUNTER → 2020-07-19 11:16 | Outpatient (CLI) | payer MEDICARE, SELFPAY ==
[2019-10-31 18:40] VITALS: BMI 50.4
[2020-07-19 12:14] LABS: Add Manual Diff / Slide Review NO; Basophils Absolute Auto 0 /uL (0-100); Basophils Percent Auto 0.6 % (0-2); Eosinophils Absolute Auto 400 /uL (0-450); Eosinophils Percent Auto 6.5 % (2-4); Hematocrit 37.7 % (36-46); Hemoglobin 12.9 g/dL (12.0-16.0); Lymphocytes Absolute Auto 1500 /uL (1100-4500); Mean Corpuscular HGB Conc 34.3 % (30-36); Mean Corpuscular Hemoglobin 31.6 PG (26-34); Mean Corpuscular Volume 92.3 fL (80-100); Monocytes Absolute Auto 400 /uL (0-900); Monocytes Percent Auto 7.1 % (3-14); Neutrophils Absolute Auto 3400 /uL (1500-7000); Neutrophils Percent Auto 59.8 % (50-75); Platelet Count 243 X10^3/uL (150-400); Red Blood Cell Count 4.08 X10^6/uL (4.0-5.2); Red Cell Distribution Width 13.7 % (11.6-14.8); White Blood Cell Count 5.6 X10^3/uL (4.5-11.0)
[2020-07-19 12:22] LABS: Alanine Aminotransferase 25 IU/L (<35); Albumin 4.2 g/dL (3.5-5.0); Albumin Globulin Ratio 1.6 (1.0-2.8); Alkaline Phosphatase 73 U/L (38-126); Aspartate Aminotransferase 29 IU/L (14-36); BUN Creatinine Ratio 26.6 (6-22); Bilirubin Total 1.1 mg/dL (0.2-1.3); Blood Urea Nitrogen 17 mg/dL (7-17); Calcium 9.4 mg/dL (8.4-10.2); Carbon Dioxide 25 mmol/L (22-32); Chloride 107 mmol/L (98-107); Cholesterol 167 mg/dL (140-199); Estimated Glomerular Filt Rate > 60.0 mL/min (>60); Globulin 2.6 g/dL (1.7-4.1); Glucose 100 mg/dL (80-110); HDL Cholesterol 55 mg/dL (40-60); HEMOLYSIS < 15 (0-50); LDL Cholesterol Calculated 91 mg/dL (<100); Potassium 4.4 mmol/L (3.4-5.1); Sodium 138 mmol/L (137-145); Total Protein 6.8 g/dL (6.3-8.2); Triglycerides 105 mg/dL (35-150)
[2020-07-19 13:31] LABS: Free T3, Triiodothyronine Free 2.76 pg/mL (2.77-5.27); Free T4, Direct Thyroxine 0.91 ng/dL (0.78-2.19)
[2020-07-19 13:45] LABS: Thyroid Stimulating Hormone 1.08 uIU/mL (0.47-4.68)
== END ==
PROVIDERS: Family Provider Family Medicine; PCP Family Medicine; Referring Provider Family Medicine; Visit Provider Family Medicine
DX: Z51.81 Encounter for therapeutic drug level monitoring (principal); E03.9 Hypothyroidism, unspecified; I10 Essential (primary) hypertension
CPT/HCPCS: 36415; 80053; 80061; 84439; 84443; 84481; 85025

== ENCOUNTER → 2020-07-30 11:53 | Outpatient (CLI) | payer MEDICARE, SELFPAY ==
[2019-10-31 18:40] VITALS: BMI 50.4
--- NOTE | 2020-07-30 11:54 | DI.RAD.S_ITS ---
PROCEDURE: XR CHEST 2V INDICATIONS: Shortness of breath TECHNIQUE: 2 views of the chest were acquired. COMPARISON: [facility], CR, XR CHEST 2V, 07/08/2019, 10:55. FINDINGS: Surgical changes and devices: Bilateral shoulder arthroplasties. Lungs and pleura: Lungs are clear. No pleural effusions or pneumothorax. Mediastinum: Mediastinal contours are normal. Heart size is normal. Bones and chest wall: No suspicious bony abnormalities. Soft tissues appear unremarkable. IMPRESSION: No acute disease. Dictated by: Juan Herrera M.D. on 07/30/2020 at 12:49 Approved by: Juan Herrera M.D. on 07/30/2020 at 12:51
== END ==
PROVIDERS: Family Provider Family Medicine; PCP Family Medicine; Referring Provider Family Medicine; Visit Provider Family Medicine
DX: R06.02 Shortness of breath (principal)
CPT/HCPCS: 71046

== ENCOUNTER → 2020-08-01 09:10 | Outpatient (CLI) | payer MEDICARE, SELFPAY ==
[2019-10-31 18:40] VITALS: BMI 50.4
--- NOTE | 2020-08-01 10:27 | DI.CT.S_ITS ---
PROCEDURE: CT ABDOMEN W CON INDICATIONS: abdominal wall mass- LUQ TECHNIQUE: After the administration of oral and intravenous contrast, 5 mm thick sections acquired from the diaphragms to the iliac crests. 5 mm thick coronal and sagittal reformats were acquired. For radiation dose reduction, the following was used: automated exposure control, adjustment of mA and/or kV according to patient size. COMPARISON: None. FINDINGS: Image quality: Excellent. Lung bases: There is a pleural-based soft tissue nodule in the posterolateral left lower lobe measuring 9 mm. Lung bases are otherwise clear. Heart size is normal. Solid organs: Liver is mildly enlarged but normal attenuation.. Gallbladder has a normal CT appearance . Biliary system is non dilated. Pancreas enhances normally. Spleen is normal in size and enhancement. No adrenal nodules. Kidneys are normal in size, without hydronephrosis. Peritoneum and bowel: There is a laparoscopic gastric band. The band has eroded slightly medial in the left aspect of the band is within the gastric lumen. The tubing is continuous. The subcutaneous port in the left mid abdomen corresponds to the patient's point of palpable abnormality. There is no perigastric fluid collection or inflammation. The visible bowel loops are normal except for mild sigmoid diverticulosis. No free fluid or air. Nodes and vessels: No retroperitoneal or mesenteric adenopathy by size criteria. Aorta and inferior vena cava are normal in size. Bones: No suspicious bony lesions. Grade 1 anterolisthesis L4 on five. Mild disc height loss L4-5 and L5-S1. No vertebral body compression fractures. Miscellaneous: Small fat containing umbilical hernia. IMPRESSION: 1. 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 No adjacent fluid collection or free air. Band removal is recommended. 2. The subcutaneous port of the gastric band corresponds to the patient's site of palpable abnormality in the left mid abdomen. 3. Small fat containing umbilical hernia. 4. 9 mm pleural-based solid nodule in the left lower lobe. Chest CT in 6-12 months is recommended to assess for stability. Dictated by: Dodie Bansal M.D. on 08/01/2020 at 10:59 Approved by: Dodie Bansal M.D. on 08/01/2020 at 11:07
== END ==
PROVIDERS: Family Provider Family Medicine; PCP Family Medicine; Referring Provider Family Medicine; Visit Provider Family Medicine
DX: R19.02 Left upper quadrant abdominal swelling, mass and lump (principal); K95.09 Other complications of gastric band procedure; K42.9 Umbilical hernia without obstruction or gangrene; R91.1 Solitary pulmonary nodule
CPT/HCPCS: 74160; Q9967

== ENCOUNTER → 2020-08-03 13:13 | Outpatient (CLI) | payer MEDICARE, SELFPAY ==
[2019-10-31 18:40] VITALS: BMI 50.4
--- NOTE | 2020-08-03 13:14 | DI.ECHO.S_ITS ---
[place] [facility]---------+ [facility] +---------+ : : [address] : : : : [id number] : : : : Phone: [phone]+ Echocardiogram Report + + :Name: HUNTER WRIGHT Study Date: 08/03/2020 Height: 65 in : :[facility] Weight: 300 lb : : Gender: Female BSA: 2.4 m2 : :: 1945 Age: 75 yrs BP: 160/72 mmHg: :Reason For Study: SOB : : Performed By: Noel Yap : :Referring: JOVANY MOORE : + + Interpretation Summary The left ventricle is normal in size. Left ventricular systolic function is normal without focal wall motion abnormalities. The ejection fraction is estimated to be 65-70%. LVEF has not changed since prior study. The right ventricle is normal in size and function. The right ventricular systolic pressure is estimated to be at least 25 mmHg based on an estimated right atrial pressure of 3 mm Hg. Both atria are normal in size. There is no significant valvular heart disease. The aortic root is normal size. Procedure: A two-dimensional transthoracic echocardiogram with color flow and Doppler was performed. The study quality was technically adequate. Comparison is made with the echocardiogram of 02/11/11. The patient was in normal sinus rhythm during the exam. Left Ventricle: The left ventricle is normal in size. There is normal left ventricular wall thickness. Left ventricular systolic function is normal without focal wall motion abnormalities. The ejection fraction is estimated to be 65-70%. Diastolic parameters suggest probable normal left ventricular diastolic function and normal filling pressures. Right Ventricle: The right ventricle is normal in size and function. Atria: Both atria are normal in size. The interatrial septum is intact with no evidence for an atrial septal defect. Mitral Valve: The mitral valve is normal in structure and function. There is trace mitral regurgitation. Aortic Valve: The aortic valve is trileaflet. The aortic valve is mildly calcified. There is mildly reduced leaflet mobility. There is no hemodynamically significant valvular aortic stenosis. No aortic regurgitation is present. Tricuspid Valve: The tricuspid valve is normal in structure and function. There is trace tricuspid regurgitation. The right ventricular systolic pressure is estimated to be at least 25 mmHg based on an estimated right atrial pressure of 3 mm Hg. Pulmonic Valve: The pulmonic valve is normal in structure and function. There is trace pulmonic regurgitation. There is no significant valvular heart disease. Great Vessels: The aortic root is normal size. The dimensions of the ascending aorta are normal. The pulmonary artery is normal size. The IVC is of normal diameter and collapses greater than 50% with a sniff. This suggests a low right atrial pressure of 3 mm Hg. Pericardium/ Pleura There is no pericardial effusion. There is no pleural effusion. MMode/2D Measurements & Calculations LVIDd: 4.8 cm LVOT diam: 2.2 cm LVIDs: 3.3 cm Ao root diam: 2.9 cm FS: 30.7 % asc Aorta Diam: 3.4 cm EPSS: 0.82 cm Ao Arch Diam (Prox Trans): 2.3 cm IVSd: 0.96 cm LVPWd: 0.89 cm LV belcher. diameter/BSA (cm/m^2): 2.0 LV sys. diameter/BSA (cm/m^2): 1.4 LA dimension: 3.0 cm RA long axis: 4.7 cm LA A2 area: 21.0 cm2 RA area: 14.7 cm2 LA A4 area: 25.0 cm2 RA vol: 38.7 ml LA length (vol): 5.8 cm RA : 16.5 ml/m2 LA vol: 77.0 ml IVC diam: 1.6 cm LA vol index: 32.8 ml/m2 TAPSE: 1.9 cm Doppler Measurements & Calculations Ao V2 max: 202.9 cm/sec LVOT Max Vinicio: 110.9 cm/sec Ao V2 mean: 156.5 cm/sec LV V1 max P.9 mmHg Ao max P.5 mmHg LV V1 VTI: 26.2 cm Ao mean P.4 mmHg BRIANNA(I,D): 2.3 cm2 Ao V2 VTI: 41.7 cm BRIANNA(V,D): 2.0 cm2 sev ratio: 0.63 BRIANNA indexed to BSA (cm^2/m^2): 0.99 MV E max vinicio: 106.9 cm/sec TR max vinicio: 234.2 cm/sec MV A max vinicio: 98.7 cm/sec TR max P.9 mmHg MV E/A: 1.1 PA V2 max: 108.0 cm/sec Med Peak E' Vinicio: 5.8 cm/sec PA V2 mean: 80.8 cm/sec E/E' med: 18.5 PA mean P.9 mmHg Lat Peak E' Vinicio: 8.4 cm/sec PA pr(Accel): 31.0 mmHg E/E' lat: 12.7 E/e' average: 15.6 MV dec time: 0.21 sec SV(LVOT): 96.5 ml Reading Physician:04:06 PM
== END ==
PROVIDERS: Family Provider Family Medicine; PCP Family Medicine; Referring Provider Family Medicine; Visit Provider Family Medicine
DX: R06.02 Shortness of breath (principal)
CPT/HCPCS: 93306

== ENCOUNTER → 2020-12-06 13:34 | Outpatient (CLI) | payer MEDICARE, SELFPAY ==
[2019-10-31 18:40] VITALS: BMI 50.4
--- NOTE | 2020-12-06 | DI.MG.S_ITS ---
BILATERAL DIGITAL SCREENING MAMMOGRAM 3D/2D WITH CAD: 12/06/2020 CLINICAL: Routine screening. Family history of breast cancer. Comparison is made to exams dated: 06/04/2017 mammogram and 04/26/2015 mammogram - [facility]. The tissue of both breasts is predominantly fatty. Current study was also evaluated with a Computer Aided Detection (CAD) system. No significant masses, calcifications, or other findings are seen in either breast. IMPRESSION: NEGATIVE There is no mammographic evidence of malignancy. A 1 year screening mammogram is recommended. This exam was interpreted at Station ID: [id number]. NOTE: For mammograms, a report in lay terms will be sent to the patient. Approximately 15% of breast malignancies will not be visualized mammographically. In the management of a palpable breast mass, a negative mammogram must not discourage biopsy of a clinically suspicious lesion. Electronically Signed By: Gabriel Lantigua acr/:12/06/2020 16:37:17 letter sent: Normal Exam ACR BI-RADS Category 1: Negative 3341F
== END ==
PROVIDERS: Family Provider Family Medicine; PCP Family Medicine; Referring Provider Family Medicine; Visit Provider Family Medicine
DX: Z12.31 Encounter for screening mammogram for malignant neoplasm of breast (principal); Z80.3 Family history of malignant neoplasm of breast
CPT/HCPCS: 77063; 77067

== ENCOUNTER → 2020-12-21 10:21 | Outpatient (CLI) | payer MEDICARE, SELFPAY ==
[2019-10-31 18:40] VITALS: BMI 50.4
--- NOTE | 2020-12-21 10:22 | DI.MRI.S_ITS ---
PROCEDURE: MR SHOULDER RT WO CON INDICATIONS: Localized swelling, mass and lump, right upper valdivia TECHNIQUE: Noncontrast oblique coronal T2 fast spin echo with fat saturation, oblique sagittal T1 spin echo and T2 fast spin echo with fat saturation, axial T1 spin echo and T2 fast spin echo with fat saturation through the shoulder. COMPARISON: [facility], MR, MR SHOULDER RT WO CON, 09/01/2019, 12:35. FINDINGS: Image quality: Diagnostic. Susceptibility artifacts from shoulder prosthesis is seen. Rotator cuff: Examination of distal rotator cuff tendons are limited due to significant susceptibility artifacts. There is suggestion of full-thickness rupture involving anterior to mid fibers of distal supraspinatus at its insertion on humeral head with up to 2.9 centimeter medial retraction of torn tendon fibers to the level of acromion. Distal infraspinatus tendinosis is noted. Distal subscapularis tendon is grossly intact. Sagittal images demonstrate moderate supraspinatus muscle atrophy. Bones and bursae: Patient is status post right glenohumeral joint arthroplasty with susceptibility artifacts limits evaluation. Moderate acromioclavicular joint osteoarthritic changes are likely present. Small amount of fluid within glenohumeral joint and subacromial subdeltoid bursa is seen. No definite intra-articular loose body. Capsule and soft tissues: The visualized portion of glenohumeral ligaments appear grossly intact. The long head of the biceps tendinosis and low-grade intrasubstance partial-thickness tear is seen. The rotator interval appears normal, without fibrosis. The coracohumeral ligament is normal in thickness. IMPRESSION: 1. Patient is status post right shoulder arthroplasty with susceptibility artifacts. No gross acute fracture or dislocation. Moderate acromioclavicular joint osteoarthritis. 2. Suggestion of full-thickness rupture involving anterior to mid fibers of distal supraspinatus at its insertion on the humeral head with up to 2.9 centimeter medial retraction of torn tendon fibers to the level of acromion. Distal infraspinatus tendinosis. Moderate supraspinatus muscle atrophy. 3. Proximal intra-articular portion of long head of biceps tendinosis and low-grade partial-thickness tear. 4. No discrete soft tissue mass or large fluid collection is seen in right shoulder soft tissue. Dictated by: Arun Allison M.D. on 12/21/2020 at 11:25 Approved by: Arun Allison M.D. on 12/21/2020 at 11:34
== END ==
PROVIDERS: Family Provider Family Medicine; PCP Family Medicine; Referring Provider Orthopaedic Surgery; Visit Provider Orthopaedic Surgery
DX: R22.31 Localized swelling, mass and lump, right upper limb (principal); M19.011 Primary osteoarthritis, right shoulder; Z96.611 Presence of right artificial shoulder joint
CPT/HCPCS: 73221

== ENCOUNTER → 2021-01-21 11:02 | Outpatient (CLI) | payer MEDICARE, SELFPAY ==
[2019-10-31 18:40] VITALS: BMI 50.4
--- NOTE | 2021-01-21 11:49 | DI.CT.S_ITS ---
PROCEDURE: CT CHEST WO CON INDICATIONS: Left lung nodule TECHNIQUE: Noncontrast 2.0-2.5 mm thick sections acquired from the pulmonary apices to the posterior costophrenic angles. 7 mm thick axial MIP and 5 mm coronal and sagittal reformats were then acquired. A low radiation dose technique was utilized. COMPARISON: [facility], CT, CT ABDOMEN W CON, 08/01/2020, 10:25. FINDINGS: Image quality: Diagnostic, given the low radiation dose technique. Lungs and pleura: The previously described 9 mm pleural nodule in the left lung base appears grossly unchanged accounting for differences in exam technique, since 08/01/20. Scattered subsegmental atelectasis and/or scarring. No focal consolidation. Airway thickening in keeping with nonspecific bronchitis and/or reactive airways disease. Additional 3 mm nodule seen in the right lung, not definitely identified on the prior study however this could be due to differences in exam technique (5 mm slices versus 1 mm slices) Mediastinum: Heart size is normal. Coronary artery calcifications are present. No pericardial effusion. No mediastinal adenopathy by size criteria. Thoracic aorta and central pulmonary arteries are normal in size. Esophagus is normal in caliber. No hiatal hernia. Nonspecific right rib focal sclerosis measuring 5 mm on image 123/2. Additional similar appearing subcentimeter sclerosis seen in the left rim on image 193/2. No vertebral body compression fractures. No axillary or supraclavicular adenopathy by size criteria. Thyroid is grossly unremarkable Abdomen: Status post gastric banding, with appearance unchanged since the prior study (partially eroded through the stomach) please see report from prior study for further description. IMPRESSION: Overall, grossly unchanged appearance of left basilar pleural nodule. Recommend continued surveillance with CT chest in 1 year. Additional 3 mm right basilar pulmonary nodule also warrants surveillance at that examination. Coronary artery disease Which Partially eroded appearance of the laparoscopic gastric band in the stomach. Please see the report from prior study for further description. Overall, no interval change. Fleischner Society criteria for SOLID lung nodule followup. Nodule size (mm)Low-risk patientHigh-risk patient<6 (single or multiple)No routine followup.Optional CT at 12 months. 6-8 (single or multiple)CT at 6-12 months, then optional CT at 18-24 mo.CT at 6-12 months, then CT at 18-24 months. >8 (single)CT at 3 months, PET-CT, or biopsy. Same as for low-risk pts. >8 (multiple)CT at 3-6 months, then optional CT at 18-24 mo.CT at 3-6 months, then CT at 18-24 months. Fleischner Society criteria for SUB-SOLID lung nodule followup. Solitary pure ground-glass nodules<6 mm (ground glass or part solid)No followup needed. 6 mm or larger (ground glass)CT at 6-12 months to confirm persistence, then CT every 2 years until 5 years.6 mm or larger (part solid)CT at 3-6 months to confirm persistence, then annual CT until 5 years if unchanged and solid component remains <6 mm. Multiple sub-solid nodules<6 mmCT at 3-6 months, then CT consider at 2 & 4 years for high risk patients. [address] at 3-6 months. Subsequent management based on most suspicious lesions. Recommendations do not apply to lung cancer screening, patients with immunosuppression, or patients with known primary cancer. Dictated by: Juan Herrera M.D. on 01/21/2021 at 13:14 Approved by: Juan Herrera M.D. on 01/21/2021 at 13:59
== END ==
PROVIDERS: Family Provider Family Medicine; PCP Family Medicine; Referring Provider Family Medicine; Visit Provider Family Medicine
DX: R91.8 Other nonspecific abnormal finding of lung field (principal); I25.10 Atherosclerotic heart disease of native coronary artery without angina pectoris
CPT/HCPCS: 71250

== ENCOUNTER → 2021-04-02 11:30 | Outpatient (CLI) | payer MEDICARE, SELFPAY ==
[2019-10-31 18:40] VITALS: BMI 50.4
--- NOTE | 2021-04-02 11:31 | DI.RAD.S_ITS ---
PROCEDURE: XR FOOT LT MIN 3V INDICATIONS: Left foot pain TECHNIQUE: 3 views of the foot were acquired. COMPARISON: None. FINDINGS: Bones: No acute fracture identified. Mild 1st MTP osteoarthritis. Diffuse interphalangeal osteoarthritis. Severe 1st TMT osteoarthritis. Scattered degenerative subchondral sclerosis and spurring. Large plantar calcaneal spur and adjacent heterotopic ossification in keeping with chronic plantar fasciitis. IMPRESSION: Diffuse chronic degenerative changes as above. If the patient's pain or other symptoms persist, consider further evaluation with MRI Dictated by: Juan Herrera M.D. on 04/02/2021 at 12:45 Approved by: Juan Herrera M.D. on 04/02/2021 at 12:46
== END ==
PROVIDERS: Family Provider Family Medicine; PCP Family Medicine; Referring Provider Family Medicine; Visit Provider Family Medicine
DX: M19.072 Primary osteoarthritis, left ankle and foot (principal); M79.672 Pain in left foot
CPT/HCPCS: 73630

== ENCOUNTER → 2022-08-21 10:20 | Outpatient (CLI) | payer MEDICARE, SELFPAY ==
[2019-10-31 18:40] VITALS: BMI 50.4
[2022-08-21 11:31] LABS: Appearance Urine UA CLEAR; Bilirubin Urine UA NEGATIVE (NEGATIVE); Color Urine UA YELLOW; Glucose Urine UA NEGATIVE (Negative); Ketones Urine UA 2+ (NEGATIVE); Leukocyte Esterase Urine UA NEGATIVE (NEGATIVE); Nitrite Urine UA NEGATIVE (Negative); Occult Blood Urine UA NEGATIVE (Negative); Protein Urine UA NEGATIVE (Negative); Urobilinogen Urine UA 0.2 E.U./dL (0.2)
[2022-08-21 11:33] LABS: Add Manual Diff / Slide Review NO; Basophils Absolute Auto 100 /uL (0-100); Basophils Percent Auto 0.8 % (0-2); Eosinophils Absolute Auto 200 /uL (0-450); Eosinophils Percent Auto 2.8 % (2-4); Hematocrit 40.4 % (36-46); Hemoglobin 13.6 g/dL (12.0-16.0); Lymphocytes Absolute Auto 1400 /uL (1100-4500); Mean Corpuscular HGB Conc 33.7 % (30-36); Mean Corpuscular Hemoglobin 30.8 PG (26-34); Mean Corpuscular Volume 91.3 fL (80-100); Monocytes Absolute Auto 600 /uL (0-900); Monocytes Percent Auto 8.6 % (3-14); Neutrophils Absolute Auto 4700 /uL (1500-7000); Neutrophils Percent Auto 67.8 % (50-75); Platelet Count 275 X10^3/uL (150-400); Red Blood Cell Count 4.42 X10^6/uL (4.0-5.2); Red Cell Distribution Width 14.3 % (11.6-14.8); White Blood Cell Count 6.9 X10^3/uL (4.5-11.0)
[2022-08-21 11:37] LABS: Creatinine Urine Random 172.6 mg/dL
[2022-08-21 11:40] LABS: Alanine Aminotransferase 28 IU/L (<35); Albumin 4.7 g/dL (3.5-5.0); Albumin Globulin Ratio 1.3 (1.0-2.8); Alkaline Phosphatase 65 U/L (38-126); Aspartate Aminotransferase 41 IU/L (14-36); BUN Creatinine Ratio 30.8 (6-22); Bilirubin Total 1.4 mg/dL (0.2-1.3); Blood Urea Nitrogen 20 mg/dL (7-17); Calcium 9.3 mg/dL (8.4-10.2); Carbon Dioxide 24 mmol/L (22-32); Chloride 105 mmol/L (98-107); Cholesterol 187 mg/dL (140-199); Estimated Glomerular Filt Rate > 60 mL/min (>60); Globulin 3.5 g/dL (1.7-4.1); Glucose 101 mg/dL (80-110); HDL Cholesterol 61 mg/dL (40-60); HEMOLYSIS 22 (0-50); LDL Cholesterol Calculated 110 mg/dL (<100); Potassium 4.3 mmol/L (3.4-5.1); Sodium 139 mmol/L (137-145); Total Protein 8.2 g/dL (6.3-8.2); Triglycerides 81 mg/dL (35-150)
[2022-08-21 11:41] LABS: Microalbumi Creatinin Ratio Ur 6.9 ug/mg CR (<30); Microalbumin Urine Random 1.2 mg/dL (0-1.6)
[2022-08-21 11:54] LABS: RBC Urine None Seen (0-5/HPF); Squamous Epithelial Cell Urine 1-5 /HPF (0-5/HPF); WBC Urine 0-1/HPF (0-5/HPF)
[2022-08-21 11:55] LABS: Amorphous Sediment Urine 2+; Bacteria Urine Moderate (10-30); Culture Indicated Urine Specimen Cultured; Mucus Urine 2+ (Negative)
[2022-08-21 12:40] LABS: Vitamin D 25 Hydroxy (D3) 44.7 ng/mL (30.0-100.0)
[2022-08-21 12:54] LABS: TSH w/ Reflex to FT4 3.86 uIU/mL (0.47-4.68)
[2022-08-21 16:28] LABS: Hep C Virus Ab w/Reflex Quant NEGATIVE s/c (NEGATIVE)
== END ==
PROVIDERS: Family Provider Family Medicine; PCP Family Medicine; Referring Provider Family Medicine; Visit Provider Family Medicine
DX: I10 Essential (primary) hypertension (principal); E78.2 Mixed hyperlipidemia; E03.9 Hypothyroidism, unspecified
CPT/HCPCS: 36415; 80053; 80061; 81001; 82043; 82306; 82570; 84443; 85025; 86803; 87086

== ENCOUNTER → 2022-09-03 12:40 | Outpatient (CLI) | payer MEDICARE, SELFPAY ==
[2019-10-31 18:40] VITALS: BMI 50.4
--- NOTE | 2022-09-03 12:41 | DI.CT.S_ITS ---
PROCEDURE: CT CHEST WO CON INDICATIONS: chronic cough and pulmonary nodule TECHNIQUE: Noncontrast 2.0-2.5 mm thick sections acquired from the pulmonary apices to the posterior costophrenic angles. 7 mm thick axial MIP and 5 mm coronal and sagittal reformats were then acquired. A low radiation dose technique was utilized. COMPARISON: [facility], CT, CT CHEST WO [facility], 01/21/2021, 11:23. FINDINGS: Image quality: Diagnostic, given the low radiation dose technique. Lungs and pleura: Pleural-based left lower lobe lung nodule, 3/170 measures 1.3 cm in largest diameter, previously 1.0 cm. A faint juxta fissural ground-glass nodule present in the anterior right lower lobe at a mid lung level measures 4 mm, stable (3/156). There are mild emphysematous changes. No other nodules, consolidations, pleural effusions, or pleural calcification. Mediastinum: Normal heart size. No pericardial effusion. Moderate dense coronary artery and aortic valvular calcification. The thoracic vessels are normal caliber. Mild aortic arch calcification. No mediastinal or hilar adenopathy. The esophagus is normal without hiatal hernia. Bones and chest wall: No suspicious bony lesions. Bilateral shoulder arthroplasties right rib bone island. Degenerative endplate spurring in the thoracic spine. No vertebral body compression fractures. No axillary or supraclavicular adenopathy by size criteria. Thyroid gland is not well seen. . Abdomen: Laparoscopic gastric band in place. Upper abdominal organs are normal. IMPRESSION: 1. Slight interval growth of solid pleural-based left lateral lower lobe lung nodule. Recommend three-month follow-up chest CT or PET-CT if not previously performed for further characterization. 2. No change in right lung nodule or development of adenopathy in the chest. 3. Moderate coronary artery calcification. Dictated by: Dodie Bansal M.D. on 09/03/2022 at 15:10 Approved by: Dodie Bansal M.D. on 09/03/2022 at 15:20
== END ==
PROVIDERS: Family Provider Family Medicine; PCP Family Medicine; Referring Provider Family Medicine; Visit Provider Family Medicine
DX: R91.8 Other nonspecific abnormal finding of lung field (principal); R05.3 Chronic cough; I25.10 Atherosclerotic heart disease of native coronary artery without angina pectoris
CPT/HCPCS: 71250

== ENCOUNTER → 2022-11-14 10:50 | Outpatient (CLI) | payer MEDICARE, SELFPAY ==
[2019-10-31 18:40] VITALS: BMI 50.4
--- NOTE | 2022-11-14 10:53 | DI.MRI.S_ITS ---
PROCEDURE: MR LUMBAR SPINE WO CON INDICATIONS: Back pain TECHNIQUE: Noncontrast sagittal T1 spin echo and T2 fast echo, sagittal STIR, and T2 fast spin echo through the lumbar spine. In cases with scoliosis, additional coronal T2 fast spin echo may be performed. COMPARISON: [facility], MR, MR LUMBAR SPINE WO CON, 06/08/2018, 12:15. FINDINGS: Image quality: Excellent. Alignment and Curvature: There is normal bony alignment. Bone Marrow: Marrow is of normal overall signal. No acute vertebral body compression fractures. Spinal Cord: Conus medullaris terminates at the L1 level. Visualized cord demonstrates normal signal and size. Paraspinous Soft Tissues: No paravertebral masses. 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 T12-L1: No significant disc bulge. The foramina and central canal are patent. L1-L2: No significant disc bulge. The foramina and central canal are patent. L2-L3: No significant disc bulge. The foramina and central canal are patent. L3-L4: The disc is desiccated consistent with degeneration. Diffuse disc bulge causes mild bilateral foraminal stenosis. No central canal stenosis. L4-L5: The disc is desiccated consistent with degeneration. Facet arthrosis and grade 1 anterolisthesis, unchanged compared to 06/08/2018. There is facet arthrosis. Both foramina have moderate stenosis. L5-S1: Facet arthrosis and grade 1 anterolisthesis. There is a diffuse disc bulge. The foramina have mild bilateral stenosis. The central canal is patent. IMPRESSION: 1. Multilevel degenerative changes at L4-5 and L5-S1. 2. Moderate bilateral foraminal stenosis at L4-5 and mild bilateral foraminal stenosis at L5-S1. Dictated by: Gabriel Lantigua M.D. on 11/14/2022 at 12:22 Approved by: Gabriel Lantigua M.D. on 11/14/2022 at 12:26
== END ==
PROVIDERS: Family Provider Family Medicine; PCP Family Medicine; Referring Provider Family Medicine; Visit Provider Family Medicine
DX: M48.062 Spinal stenosis, lumbar region with neurogenic claudication (principal); M48.07 Spinal stenosis, lumbosacral region; M47.816 Spondylosis without myelopathy or radiculopathy, lumbar region; M47.817 Spondylosis without myelopathy or radiculopathy, lumbosacral region; M54.9 Dorsalgia, unspecified
CPT/HCPCS: 72148

== ENCOUNTER → 2022-12-18 11:04 | Outpatient (CLI) | payer MEDICARE, SELFPAY ==
[2019-10-31 18:40] VITALS: BMI 50.4
--- NOTE | 2022-12-18 11:06 | DI.CT.S_ITS ---
PROCEDURE: CT CHEST WO CON INDICATIONS: Follow-up left pulmonary nodule TECHNIQUE: Noncontrast 5 mm thick sections acquired from the pulmonary apices to the posterior costophrenic angles. 1 mm lung window, 5 mm thick coronal and sagittal and 7 mm axial MIP reformats were then acquired. For radiation dose reduction, the following was used: automated exposure control, adjustment of mA and/or kV according to patient size. COMPARISON: [facility], CT, CT CHEST WO CON, 09/03/2022, 12:42. FINDINGS: Image quality: Adequate. Lungs and pleura: 1.3 cm left lower lobe subpleural or pleural based nodule (3/174), unchanged since the prior exam. 5 mm anterior right lower lobe ground-glass nodule (3/162) unchanged when remeasured similarly. 1.2 cm ground-glass nodule posterior inferior right upper lobe (3/123) also unchanged. There is a background of emphysema as before. No pleural effusion Mediastinum: No pericardial effusion. Thoracic aorta and central pulmonary arteries are normal in size. Esophagus is normal in caliber. Multivessel coronary artery calcifications and/or stents. Bones and chest wall: Multilevel degenerative change of the visualized spine. No axillary adenopathy by size criteria. Bilateral shoulder arthroplasty. Abdomen: Gastric lap band redemonstrated. IMPRESSION: No significant interval change in previously demonstrated pulmonary nodules. Attention on follow-up is recommended. Dictated by: Edwin Power M.D. on 12/18/2022 at 16:27 Approved by: Edwin Power M.D. on 12/18/2022 at 16:40
== END ==
PROVIDERS: Family Provider Family Medicine; PCP Family Medicine; Referring Provider Family Medicine; Visit Provider Family Medicine
DX: R91.8 Other nonspecific abnormal finding of lung field (principal); Z98.84 Bariatric surgery status
CPT/HCPCS: 71250

== ENCOUNTER → 2023-01-02 11:52 | Outpatient (CLI) | payer MEDICARE, SELFPAY ==
[2019-10-31 18:40] VITALS: BMI 50.4
--- NOTE | 2023-01-02 11:54 | DI.MG.S_ITS ---
BILATERAL DIGITAL SCREENING MAMMOGRAM 3D/2D WITH CAD: 01/02/2023 CLINICAL: Routine screening. Family history of breast cancer. Comparison is made to exams dated: 12/06/2020 mammogram, 06/04/2017 mammogram, and 04/26/2015 mammogram - [facility]. Both breasts are almost entirely fatty (category a/<25% glandular tissue). Current study was also evaluated with a Computer Aided Detection (CAD) system. No significant masses, calcifications, or other findings are seen in either breast. There has been no significant interval change. IMPRESSION: NEGATIVE There is no mammographic evidence of malignancy. A 1 year screening mammogram is recommended. Based on the Tyrer Cuzick model (a risk assessment model) the patient's lifetime risk is 1.6% and her 10 year risk is 0.0%. According to the ACR, ACS, and NCCN guidelines, an annual breast MRI exam along with mammogram is recommended if the patient's lifetime risk is 20% or greater. This exam was interpreted at Station ID: [id number]. NOTE: For mammograms, a report in lay terms will be sent to the patient. Approximately 15% of breast malignancies will not be visualized mammographically. In the management of a palpable breast mass, a negative mammogram must not discourage biopsy of a clinically suspicious lesion. Electronically Signed By: Edwin savage/vannessa:01/02/2023 15:08:10 letter sent: Normal Exam ACR BI-RADS Category 1: Negative 3341F
--- NOTE | 2023-01-02 11:54 | DI.MRI.S_ITS ---
PROCEDURE: MR STROKE Pre- and post-contrast brain MRI, non-contrast brain MR angiogram, pre- and postcontrast neck MR angiogram INDICATIONS: new headaches and right ear tingling TECHNIQUE: Brain: Noncontrast axial T1 spin echo, axial T2 fast spin echo, sagittal and axial FLAIR, coronal T2 fast spin echo, axial gradient echo, axial diffusion and ADC through the brain. After the administration of contrast, axial 3D VIBE of the cranial vasculature and brain. Brain MRA: Non-contrast 3-D time of flight MR angiogram, with multiple dqjcgof-xdpcywkcw-kzqcuiirpr (MIP) reformats performed. Neck MRA: Axial and sagittal TruFISP through the neck. Coronal dynamic MR angiogram during administration of contrast in the arterial and venous phases, with 3-dimenstional nkohwki-oajmytexq-yxgmvjaoki (MIP) reformats constructed from subtraction images. COMPARISON: None. FINDINGS: Image quality: Excellent. BRAIN: CSF spaces: Ventricles are normal in size and shape. Basal cisterns are patent. No extra-axial fluid collections. Brain: Associated with the left frontal high convexity manages, there is a homogeneously enhancing extra-axial mass lesion measuring 2.6 x 1.9 x 2.3 cm. No associated midline shift or cerebral edema. Otherwise, no intracranial bleeds or mass effects. Vega-white matter interface is normal. Diffusion weighted images show no acute infarct. Brainstem appears normal. Normal intravascular flow voids are present. Skull and face: Calvarial marrow signal is normal. Orbits appear normal. Sinuses: Sinuses and mastoids are clear. BRAIN MR ANGIOGRAM: Anterior circulation: Intracranial internal carotid arteries are normal in size and enhancement. The flow within the paired anterior cerebral arteries is normal and symmetric. The flow within the middle cerebral arteries is normal and symmetric. The anterior communicating artery is seen. No stenoses, occlusions, or aneurysms. Posterior circulation: The visualized portions of the vertebral arteries demonstrate normal caliber, and join to form a normal appearing basilar artery. In the left vertebral artery, there is artifactual loss of signal on the ryqh-zt-btfavq sequence which fills on the postcontrast sequence. 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 The P2 segment is supplied by a widely patent posterior communicating artery. Remainder of the distal vasculature unremarkable. No stenoses, occlusions, or aneurysms. NECK MR ANGIOGRAM: Carotids: Great vessels demonstrate a conventional anatomy as they arise from the aortic arch. The origins of the common carotid arteries appear patent. The calibers and courses of both common carotid arteries are normal. The bifurcation regions appear normal bilaterally. The internal carotid arteries demonstrate normal course and caliber. Posterior circulation: The origins of the vertebral arteries appear patent. More superior portions of both vertebral arteries demonstrate normal course and caliber, and join to form a normal appearing basilar artery. Miscellaneous: Subclavian arteries appear patent. Pre-contrast images through the neck show no soft tissue abnormalities. IMPRESSION: Left frontal typical meningioma, 1.9 x 2.6 cm. No cerebral edema. Atrophy and chronic ischemic change without intracranial acute infarct or hemorrhage. Unremarkable MR angiogram of the head neck without large vessel occlusion, significant stenosis or aneurysm Approved by: Yayo Smith M.D. on 01/02/2023 at 14:34
[2023-01-02 14:01] LABS: Add Manual Diff / Slide Review NO; Basophils Absolute Auto 0 /uL (0-100); Basophils Percent Auto 0.6 % (0-2); Eosinophils Absolute Auto 200 /uL (0-450); Eosinophils Percent Auto 3.3 % (2-4); Hematocrit 39.5 % (36-46); Lymphocytes Absolute Auto 1300 /uL (1100-4500); Lymphocytes Percent Auto 24.9 % (25-40); Mean Corpuscular HGB Conc 32.9 % (30-36); Mean Corpuscular Hemoglobin 29.8 PG (26-34); Mean Corpuscular Volume 90.7 fL (80-100); Monocytes Absolute Auto 400 /uL (0-900); Monocytes Percent Auto 7.6 % (3-14); Neutrophils Absolute Auto 3300 /uL (1500-7000); Neutrophils Percent Auto 63.6 % (50-75); Platelet Count 265 X10^3/uL (150-400); Red Blood Cell Count 4.36 X10^6/uL (4.0-5.2); Red Cell Distribution Width 14.1 % (11.6-14.8); White Blood Cell Count 5.2 X10^3/uL (4.5-11.0)
[2023-01-02 14:18] LABS: Alanine Aminotransferase 24 IU/L (<35); Albumin 4.1 g/dL (3.5-5.0); Albumin Globulin Ratio 1.5 (1.0-2.8); Alkaline Phosphatase 63 U/L (38-126); Aspartate Aminotransferase 28 IU/L (14-36); Bilirubin Total 1.1 mg/dL (0.2-1.3); Blood Urea Nitrogen 19 mg/dL (7-17); Calcium 9.3 mg/dL (8.4-10.2); Carbon Dioxide 26 mmol/L (22-32); Chloride 106 mmol/L (98-107); Estimated Glomerular Filt Rate > 60 mL/min (>60); Globulin 2.7 g/dL (1.7-4.1); Glucose 84 mg/dL (80-110); HEMOLYSIS < 15 (0-50); Potassium 4.4 mmol/L (3.4-5.1); Sodium 139 mmol/L (137-145); Total Protein 6.8 g/dL (6.3-8.2)
== END ==
PROVIDERS: Family Provider Family Medicine; PCP Family Medicine; Referring Provider Family Medicine; Visit Provider Family Medicine
DX: Z12.31 Encounter for screening mammogram for malignant neoplasm of breast (principal); D32.0 Benign neoplasm of cerebral meninges; G43.909 Migraine, unspecified, not intractable, without status migrainosus; H93.8X9 Other specified disorders of ear, unspecified ear; E03.9 Hypothyroidism, unspecified; I10 Essential (primary) hypertension; Z80.3 Family history of malignant neoplasm of breast
CPT/HCPCS: 36415; 70548; 70553; 77063; 77067; 80053; 85025; A9579

== ENCOUNTER → 2023-03-02 10:29 | Outpatient (CLI) | payer MEDICARE, SELFPAY ==
[2019-10-31 18:40] VITALS: BMI 50.4
--- NOTE | 2023-03-02 10:30 | DI.RAD.S_ITS ---
PROCEDURE: XR CHEST 2V INDICATIONS: Cough with increased difficulty of breathing TECHNIQUE: 2 views of the chest were acquired. COMPARISON: [facility], CT, CT CHEST WO CON, 12/18/2022, 11:17. [facility], CR, XR CHEST 2V, 07/08/2019, 10:55. [facility], CR, XR CHEST 2V, 07/01/2019, 11:29. FINDINGS: Surgical changes and devices: Bilateral shoulder arthroplasties. Lungs and pleura: Left lower lobe pulmonary nodule measuring approximately 1.4 cm. No pleural effusions or pneumothorax. Mediastinum: Mediastinal contours are normal. Heart size is normal. Bones and chest wall: No suspicious bony abnormalities. Soft tissues appear unremarkable. IMPRESSION: No acute cardiopulmonary abnormality identified. Left lower lobe pulmonary nodule measuring 1.4 cm is increased in size compared to remote CXR. Recommend follow-up CT chest in 6-12 months. PET/CT could also be considered for further evaluation. Dictated by: Martin Hernández M.D. on 03/02/2023 at 10:55 Approved by: Martin Hernández M.D. on 03/02/2023 at 11:02
== END ==
PROVIDERS: Family Provider Family Medicine; PCP Family Medicine; Referring Provider Urology; Visit Provider Urology
DX: R05.9 Cough, unspecified (principal); R91.1 Solitary pulmonary nodule
CPT/HCPCS: 71046

== ENCOUNTER 2023-03-11 07:29 | Day surgery (SDC) | payer MEDICARE, SELFPAY ==
[2019-10-31 18:40] VITALS: BMI 50.4
[2023-03-10 08:57] VITALS: BMI 47.9
[2023-03-11] VITALS (10 sets, daily range): BP systolic 116–153; BP diastolic 55–91; PULSE 75–100; RESP 12–20; TEMP 36.2–36.8; O2SAT 91–98; BMI 47.9
--- NOTE | 2023-03-11 | PATH_ITS ---
[facility] Accession Number: [id number] No. of containers..01 Tissue . 01 Material submitted: . shoulder - RIGHT SHOULDER . 01 Diagnosis: Right Shoulder, Excision: Mature adipose tissue, consistent with lipoma. PETER 03/16/2023 0849 Local . 01 Electronically signed: . Sivler Trevino MD, Dermatopathologist NPI- [id number] . 01 Gross description: . The specimen is received in formalin labeled with the patient's name, , and right shoulder lipoma, and consists of a yellow, smooth soft tissue fragment measuring 11.7 x 7.0 x 4.3 cm. The external surface is inked blue, and sectioning reveals a yellow, homogenous, unremarkable cut surface. Block Paver sections are submitted in cassettes A1-A4. ([id number]) /[facility] 03/12/2023 1100 Local . 01 Pathologist provided ICD-10: D17.9 . 01 CPT . 514921 Specimen Comment: A courtesy copy of this report has been sent to [phone] Performed at: 01 [facility] [address] [place] [address], [place], [place] [id number] MD Sincere Morales MD Phone: [phone]
[2023-03-11] MEDS: LACTATED RINGERS 1,000 ML 42 ML IV (08:26)
--- NOTE | 2023-03-11 08:31 | PM.PREOP ---
Pre-operative Note Interval Note History & Physical reviewed/Exam performed by Physician: Yes Changes to H&P: No
[2023-03-11] MEDS: CEFAZOLIN 2 GM/100 ML PREMIX 100 ML IV (09:00)
[2023-03-11] MEDS: CEFAZOLIN VIAL 1 GM in SODIUM CHLORIDE 0.9% 100 ML IV (09:00)
--- NOTE | 2023-03-11 09:21 | SUR.OPER ---
Beach chair on padded OR bed. Head on gel donut secured with tape over gauze. Non-operative arm secured <90 degrees abduction on padded arm board. Right arm in control of surgeon. Pillow under knees. Safety belt at thigh. Cloth tape over blanket over lower legs.
--- NOTE | 2023-03-11 09:57 | PM.OP.1 ---
Operative Date/Time/Diagnoses Date of procedure: 03/11/23 Time of procedure: 09:57 Pre-op diagnosis: Subcutaneous lipoma, right arm Post-op diagnosis: same Procedure & Clinicians Procedure: Excision of subcutaneous lipoma, right arm Same procedure as scheduled: Yes Indications: The patient has had a long-term, slowly growing mass of the right upper arm. This was evaluated with an MRI and appeared to be a benign lipoma although quite a large 1. Initially she attempted to tolerate it but it has become increasingly bothersome and she now requests excision. Risks of this surgery were discussed with her at length including but not limited to: Possibility of liposarcoma malignancy requiring further treatment, infection, nerve damage, failure of wound healing, deep venous thrombosis, pulmonary embolism, stroke, myocardial infarction, permanent paralysis and . Surgeon: Wing Boss Click Yes if Unassisted: Yes Anesthesia Type: General Operative Notes Findings: 12 cm x 8 cm x 6 cm encapsulated lipoma which appeared to have originated in the muscular tissue of the deltoid. Closure Type: primary Specimen(s): other (Lipoma sent to pathology) Estimated Blood Loss (mL): 10 Blood products transfused: none Procedure in detail: The patient was seen in the preoperative area where she identified the right arm as the operative site and this was marked with my initials. She was taken to the operating room and placed on the operating room table in the supine position where she underwent the induction of a general anesthetic. After satisfactory anesthesia she was positioned in the ?beach chair? position on a standard operating room table with padding for all pressure points. A pad was placed medial to her scapula to bring her shoulder forward to allow better access to the anterolateral aspect of the upper arm. A full procedural pause was performed. The arm was then prepared with ChloraPrep and draped through sterile drapes. An elliptical skin incision was created due to the tissue chronometer assembler and adjuster quality of the tumor. The skin ellipse dissected easily off the underlying lipoma capsule and was removed. The lipoma itself was shelled out around its capsule with scissors and finger dissection. Hemostasis was obtained meticulously with electrocautery. In the upper portion there were deltoid muscle fibers on the capsule of the lipoma suggesting that this at 1 point had been an intramuscular deltoid lipoma. After removal of the lipoma meticulous hemostasis was again obtained. The wound was copiously irrigated and the wound closed with 3-0 Vicryl in the subcutaneous layer and a 3-0 barbed suture for skin. Dermabond was applied followed by an Aquacel Ag dressing. The patient was then awakened from her anesthetic and transferred to the recovery room in good condition having tolerated the procedure well. Complications: none Post-operative Condition: stable Disposition: PACU Plan for aftercare: The patient will be discharged home today. We will follow the pathology results for the lipoma. She will be allowed to use her arm as tolerated. She is been given a small amount of oxycodone for pain control at home.
[2023-03-11] MEDS: OXYCODONE/ACETAMINOPHEN 5/325 TABLET 1 TAB PO (10:29)
== END 2023-03-11 11:03 | disposition home or self-care (01) ==
PROVIDERS: Family Provider Family Medicine; PCP Family Medicine; Referring Provider Orthopaedic Surgery; Visit Provider Orthopaedic Surgery
PROC: (CPT 24073; principal; 2023-03-11 08:45)
DX: D17.21 Benign lipomatous neoplasm of skin and subcutaneous tissue of right arm (principal)
CPT/HCPCS: 24073; J0330; J0690; J1100; J2405; J2704; J3010

== ENCOUNTER → 2023-05-04 14:05 | Outpatient (CLI) | payer MEDICARE, SELFPAY ==
[2019-10-31 18:40] VITALS: BMI 50.4
--- NOTE | 2023-05-04 14:07 | DI.ECHO.S_ITS ---
[place] [facility]---------+ [facility] +---------+ : : [address] : : : : [id number] : : : : Phone: [phone]+ Echocardiogram Report + + :Name: HUNTER WRIGHT Study Date: 05/04/2023 Height: 64 in : :[facility] ReadingLocation: Weight: 275 lb : : Gender: Female BSA: 2.2 m2 : :: 1945 Age: 77 yrs BP: 185/75 mmHg: :Reason For Study: Chest Pain : :Ordering Physician: Jonathon, : :Cruz Performed By: Yuli Fletcher : :Referring: CRUZ MASON : + + Interpretation Summary 1) Normal left ventricular size, wall motion, and systolic function (EF 60- 65%). 2) Normal right ventricular size and function. 3) Mild aortic stenosis present (valve area 1.6cm2, mean gradient 10mmHg). 4) Compared to the Echo done 08/03/2020, mild aortic stenosis is present on this study. Procedure: A two-dimensional transthoracic echocardiogram with color flow and Doppler was performed. The study quality was technically adequate. Comparison is made with the echocardiogram of 08/03/2020. A contrast injection of Definity was performed to improve assessment of LV function. The patient was in normal sinus rhythm during the exam. Left Ventricle: The left ventricle is normal in size. Left ventricular wall thickness is at the upper limits of normal. The ejection fraction is estimated to be 60-65%. Diastolic parameters suggest a relaxation abnormality of the left ventricle, consistent with probable normal filling pressures. Right Ventricle: The right ventricle is normal size. The right ventricular systolic function is normal. Atria: The left atrial size is normal. Right atrial size is normal. There is no Doppler evidence for an interatrial shunt. Mitral Valve: The mitral valve is not well visualized. There is mild to moderate mitral annular calcification. There is no mitral valve stenosis. There is no mitral regurgitation noted. Aortic Valve: The aortic valve is trileaflet. The aortic valve opens well. There is mild aortic valve sclerosis. The peak aortic velocity is 2.05 m/sec. The aortic valve mean gradient is 10 mmHg. No aortic regurgitation is present. Tricuspid Valve: The tricuspid valve is not well visualized. There is no tricuspid stenosis. There is trace tricuspid regurgitation. Pulmonic Valve: The pulmonic valve leaflets are thin and pliable; valve motion is normal. There is no pulmonic valvular stenosis. There is trace pulmonic regurgitation. Great Vessels: The aortic root is normal size. The ascending aorta is normal in size. The pulmonary artery is normal size. The IVC is of normal diameter and collapses greater than 50% with a sniff. This suggests a low right atrial pressure of 3 mm Hg. Pericardium/ Pleura There is no pericardial effusion. There is no pleural effusion. MMode/2D Measurements & Calculations LVIDd: 5.5 cm LVOT diam: 2.0 cm LVIDs: 3.7 cm Ao root diam: 2.8 cm FS: 32.7 % asc Aorta Diam: 3.2 cm IVSd: 1.1 cm LVPWd: 1.0 cm LV belcher. diameter/BSA (cm/m^2): 2.5 LV sys. diameter/BSA (cm/m^2): 1.7 LA A2 area: 20.1 cm2 RA long axis: 4.1 cm LA A4 area: 19.7 cm2 RA area: 10.3 cm2 LA length (vol): 6.0 cm RA vol: 22.1 ml LA vol: 56.5 ml RA : 9.9 ml/m2 LA vol index: 25.2 ml/m2 RVD1 (basal): 3.0 cm LVAd ap4: 34.2 cm2 LVAs ap4: 18.5 cm2 LVLs ap4: 6.6 cm LVAd ap2: 30.2 cm2 TAPSE_phl: 2.3 cm LVLd ap2: 7.5 cm LVAs ap2: 19.3 cm2 LVLs ap2: 6.7 cm Doppler Measurements & Calculations Ao V2 max: 205.0 cm/sec LVOT Max Vinicio: 89.4 cm/sec Ao V2 mean: 147.0 cm/sec LV V1 max P.2 mmHg Ao max P.0 mmHg LV V1 VTI: 23.8 cm Ao mean P.0 mmHg BRIANNA(I,D): 1.6 cm2 Ao V2 VTI: 47.6 cm BRIANNA(V,D): 1.4 cm2 sev ratio: 0.50 BRIANNA indexed to BSA (cm^2/m^2): 0.70 MV E max vinicio: 86.1 cm/sec PA V2 max: 116.0 cm/sec MV A max vinicio: 111.0 cm/sec PA V2 mean: 77.1 cm/sec MV E/A: 0.78 PA mean P.0 mmHg Med Peak E' Vinicio: 6.7 cm/sec PA pr(Accel): 25.4 mmHg E/E' med: 12.9 Lat Peak E' Vinicio: 7.7 cm/sec E/E' lat: 11.1 E/e' average: 12.0 MV dec time: 0.32 sec SV(LVOT): 74.8 ml AV VR_phl: 0.44 BRIANNA(VTI)/BSA_phl: 0.70 MV P1/2t-pr_phl: 92.0 msec Reading Physician:06:33 PM
--- NOTE | 2023-05-05 21:40 | DI.NM.S_ITS ---
DATE OF SERVICE: 05/04/2023 PROCEDURE: Pharmacological perfusion study. INDICATIONS: Shortness of breath, hypertension, hyperlipidemia, heart murmur. RADIOPHARMACEUTICAL: 27.1 millicurie technetium-99m Myoview IV was injected at stress and 25.3 millicurie technetium-99m Myoview IV was injected at rest. CARDIAC STRESS: The patient underwent IV Lexiscan perfusion study under the supervision of an attending staff using standard IV Lexiscan as per protocol. Resting blood pressure 132/90. Baseline rhythm was sinus. During stress, some nonspecific ST-T changes were seen. Resting, occasional PVCs were seen as well. The patient had mild shortness of breath. The patient remained hemodynamically stable. RAW DATA: There is increased subdiaphragmatic activity. Diaphragmatic shadow seen. The patient's weight is 277 pounds. GATED STUDY: Stress LV ejection fraction 75% without any obvious wall motion abnormalities. Resting end-diastolic volume 120 mL. TID ratio 1.09, which is within normal limits. Lung/heart ratio 0.61, which is abnormal. MYOCARDIAL PERFUSION SCAN: Stress supine, resting supine and stress prone images were compared to each other. Stress supine, resting supine images revealed moderate to large size, moderate to severely decreased perfusion of inferior wall, as well as basal inferolateral wall extending into the inferoapex, which got partially improved during stress prone images. Stress prone images remained to have moderate size, mild to moderately decreased perfusion of basal to mid inferior wall. Overall, inferoapex and basal inferolateral wall got improved significantly. No reversible ischemia. CONCLUSION: I will call this study likely a normal myocardial perfusion study with evidence of significant diaphragmatic tissue attenuation artifact along with persistent tissue attenuation artifact, which got partially improved during stress prone images, as stated above. Inferior wall is moving well. There are no wall motion abnormalities. The patient had a perfusion study in 2010, that time, also, she had similar perfusion defect. No reversible ischemia. However, lung/heart ratio is abnormal. Lung/heart ratio 0.61, suggestive of valvular pathology or diastolic dysfunction or elevated left ventricular filling pressure. Correlate clinically and consider 2D echo. Luther Prieto - STEVE/damien/genoveva doc#: [id number]/job#: [id number] dd: 05/05/2023 17:07:00 dt: 05/05/2023 21:28:00 DICTATING MD/COPIES TO: Mahsa Smith MD COPIES MNE: JONEL;
== END ==
PROVIDERS: Family Provider Family Medicine; PCP Family Medicine; Referring Provider Family Medicine; Visit Provider Family Medicine
DX: I34.81 Nonrheumatic mitral (valve) annulus calcification (principal); I35.8 Other nonrheumatic aortic valve disorders; R06.09 Other forms of dyspnea; I10 Essential (primary) hypertension; R01.1 Cardiac murmur, unspecified; R06.02 Shortness of breath; E78.5 Hyperlipidemia, unspecified
CPT/HCPCS: 78452; 93017; 93306; A9502; J2785; Q9957

== ENCOUNTER → 2023-09-22 11:24 | Outpatient (CLI) | payer MEDICARE, SELFPAY ==
[2019-10-31 18:40] VITALS: BMI 50.4
--- NOTE | 2023-09-22 11:26 | DI.RAD.S_ITS ---
PROCEDURE: XR CHEST 2V INDICATIONS: cough x2 wk, pulm nodule TECHNIQUE: 2 views of the chest were acquired. COMPARISON: [facility], CT, CT CHEST WO CON, 12/18/2022, 11:17. [facility], CR, XR CHEST 2V, 03/02/2023, 10:37. FINDINGS: Surgical changes and devices: Status post bilateral shoulder arthroplasty. Lungs and pleura: No acute airspace opacities. Stable appearance of 1.3 cm peripheral nodule in the left lower lobe. Otherwise, no suspicious pulmonary nodules or masses seen. No pleural effusions or pneumothorax. Mediastinum: Mediastinal contours are normal. Heart size is normal. Bones and chest wall: No suspicious bony abnormalities. Soft tissues appear unremarkable. IMPRESSION: No acute cardiopulmonary abnormality is seen. Stable 1.3 cm left lower lobe pulmonary nodule. Recommend continued attention to this finding on subsequent imaging. Dictated by: Marvin Gómez M.D. on 09/22/2023 at 11:40 Approved by: Marvin Gómez M.D. on 09/22/2023 at 11:47
== END ==
LOC: RAD 11:26
PROVIDERS: Family Provider Family Medicine; PCP Family Medicine; Referring Provider Student in an Organized Health Care Education/Training Program; Visit Provider Student in an Organized Health Care Education/Training Program
DX: J06.9 Acute upper respiratory infection, unspecified (principal); R91.1 Solitary pulmonary nodule
CPT/HCPCS: 71046

== ENCOUNTER 2023-11-02 10:57 | Emergency (ER) | payer MEDICARE, SELFPAY ==
[2019-10-31 18:40] VITALS: BMI 50.4
[2023-11-02 11:23] VITALS: BP 149/69; PULSE 86; RESP 16; TEMP 37.6; O2SAT 95; BMI 48.0
[2023-11-02 13:34] VITALS: BP 186/79; PULSE 88; RESP 22; TEMP 36.6; O2SAT 97
--- NOTE | 2023-11-02 13:49 | ED_ITS ---
HPI - URI/Sore Throat General Chief Complaint: Upper Respiratory Symptoms Stated Complaint: covid Time Seen by Provider: 11/02/23 13:27 Source: patient Mode of arrival: Ambulatory History of Present Illness HPI Narrative: Patient is an 78-year-old female history of , hypothyroid, hypertension hyperlipidemia, presenting today with COVID exposure. She reports that her started having COVID symptoms 4 days ago. She started having some symptoms yesterday. She continues to have headache some mild cough. She has afebrile. She is here with the rest of her family for evaluation. She says she feels better than the rest of them. Vitals are stable without evidence of hypoxia. Related Data Home Medications Medication Instructions Recorded Confirmed multivitamin 1 cap PO DAILY ##0 05/30/11 09/22/23 cholecalciferol (vitamin D3) 25 1,000 units PO QDAY ##0 10/02/12 09/22/23 mcg (1,000 unit) capsule (Vitamin D3) ferrous fumarate 89 mg (29 mg 65 mg PO QDAY ##0 02/03/17 09/22/23 iron) tablet diphenhydramine 25 1 ea PO HSP PRN Sleep ##0 06/23/17 09/22/23 mg-acetaminophen 500 mg tablet (Acetaminophen PM) vitamin B complex 1 tab PO DAILY 02/23/19 09/22/23 ibuprofen 200 mg tablet 200 mg PO Q6H PRN Pain (Scale 03/11/23 09/22/23 Score 1-3) Previous Rx's Medication Instructions Recorded diclofenac sodium 1 % topical gel 4 gram topical QID #100 grams 05/01/[address] #1 ea 02/12/21 aspirin 81 mg tablet,delayed 81 mg PO BID #14 tabs 03/11/23 release lovastatin 40 mg tablet 80 mg (2 x 40 mg) PO QAM #240 tabs 04/30/23 lisinopril 10 mg tablet See Rx Instructions .Route 05/22/23 .COMPLEX #360 tabs furosemide 20 mg tablet See Rx Instructions .Route 07/06/23 .COMPLEX #180 tabs levothyroxine 125 mcg tablet See Rx Instructions .Route 07/06/23 .COMPLEX #90 tabs meloxicam 15 mg tablet See Rx Instructions .Route 07/06/23 .COMPLEX #90 tabs duloxetine 30 mg capsule,delayed See Rx Instructions .Route 08/13/23 release .COMPLEX #180 caps Allergies Allergy/AdvReac Type Severity Reaction Status Date / Time Penicillins Allergy Intermediate HIVES Verified 09/22/23 10:51 etodolac AdvReac Mild NIGHTMARES?, Verified 09/22/23 10:51 UNSURE TAPE AdvReac Mild RASH WHEN Uncoded 09/22/23 10:51 ON 'SOFT PARTS OF SKIN' SILK TAPE OK Patient History Medical History Exertional dyspnea Meningioma Lumbar spinal stenosis Strep pharyngitis Hypothyroidism Left lower lobe pulmonary nodule HLD (hyperlipidemia) HTN (hypertension) Sleep apnea (~2011) Depression (~1959) Migraines (~1949) Rosacea (~2014) Eczema (~2009) Measles (~1949) Chicken pox (~1949) Anemia (~1952) Heavy menstrual period (~1979) Fibroids (~1979) Endometriosis (~1979) Hemorrhoid (~1961) Hyperthyroidism (~1965) Arthritis (~2000) Shoulder pain (~2009) Foot pain (~1959) Fibromyalgia (~1979) Ankle pain (~2009) Retinal tear (~2011) Tinnitus (~2012) Surgical History History of total replacement of right shoulder joint (10/31/19) Hx of bilateral cataract extraction (~2016) History of arthroplasty of left shoulder (02/17/17) Anesthesia Hx of laparoscopic gastric banding (~2011) History of knee replacement (~2002) Status post hysterectomy (~1988) Family History Grandmother No problems noted. Mother No problems noted. Grandfather No problems noted. Grandmother No problems noted. Social History household members: spouse Smoking Status: Former smoker alcohol intake: former Smoking Status: Former smoker Substance Use Type: does not use Exam Initial Vital Signs Initial Vital Signs: Vital Signs Temperature 99.6 F 11/02/23 11:23 Pulse Rate 86 11/02/23 11:23 Respiratory Rate 16 11/02/23 11:23 Blood Pressure 149/69 H 11/02/23 11:23 Pulse Oximetry 95 11/02/23 11:23 Oxygen Delivery Method Room Air 11/02/23 11:23 GENERAL: Alert pleasant well-appearing 78-year-old female without evidence of respiratory distress and in no acute distress. HEENT: Head atraumatic,EOMI, pupils reactive, face symmetric, moist mucous membranes CARDIOVASCULAR: Regular rate and rhythm without murmurs, rubs or gallops. RESPIRATORY: Breath sounds equal bilaterally, no wheezes rales or rhonchi. Speaks in full sentences EXTREMITIES: Normal range of motion, no clubbing or edema. Neurovascularly in tact NEUROLOGICAL: Alert and oriented x4 SKIN: Warm, dry, no laceration, no petechiae, no rashes or lesions. Course Vital Signs Vital signs: Vital Signs - 8 hr 11/02/23 11:23 11/02/23 13:34 Temperature 99.6 F 97.8 F Pulse Rate 86 88 Respiratory Rate 16 22 Blood Pressure 149/69 H 186/79 H Pulse Oximetry 95 97 Oxygen Delivery Method Room Air Room Air MDM - URI/Sore Throat MDM Narrative Medical decision making narrative: Patient 78-year-old female presenting today with headache and likely COVID. There is known COVID in her house. She is afebrile vitals are stable. She overall appears very well. At this time no need for any further workup or admission. Discussed warning signs and when to return to the ED. she has no sign of respiratory distress she does have low-grade fever 99.6. Discharge Plan Departure Patient Disposition: Home Clinical Impression: COVID-19 Instructions: COVID-19 Activity Restrictions/Additional Instructions: *You have been diagnosed with COVID-19 *What to do: At this time stay hydrated continue to monitor. *Continue to take medications as directed Tylenol 650 mg every 4-6 hours if needed for gcru-qi-stnpimxw pain or fever Motrin 400 mg every 6-8 hours if needed for pain or fever *Follow up with your primary care provider in 2-3 days or call [phone] *Return to ER if you should have increased shortness of breath, not taking in fluids worsening headache or any new, worsening or concerning symptoms Prescriptions: No Action multivitamin Capsule 1 cap PO DAILY Qty: 0 cholecalciferol (vitamin D3) [Vitamin D3] 1,000 unit Capsule 1,000 units PO QDAY Qty: 0 ferrous fumarate 89 MG tablet 65 mg PO QDAY Qty: 0 diphenhydramine-acetaminophen [Acetaminophen PM] 500 MG/25 MG tablet 1 ea PO HSP PRN (Reason: Sleep) Qty: 0 diclofenac sodium 1 % gel 4 gram TOP QID Qty: 100 1RF Rx Instructions: apply to single knee, ankle, foot; for foot includes sole/toes/top of foot (DME) disabled parking permit See Rx Instructions .Route .MEDSUPPLY Qty: 1 0RF Rx Instructions: valid for 5 years lovastatin 40 mg tablet 80 mg PO QAM Qty: 240 2RF lisinopril 10 mg tablet See Rx Instructions .ROUTE .COMPLEX Qty: 360 3RF Dose Instruction: TAKE 2 TABLETS BY MOUTH TWICE DAILY Rx Instructions: TAKE 2 TABLETS BY MOUTH TWICE DAILY meloxicam 15 mg tablet See Rx Instructions .ROUTE .COMPLEX Qty: 90 3RF Dose Instruction: TAKE 1 TABLET BY MOUTH DAILY Rx Instructions: TAKE 1 TABLET BY MOUTH DAILY levothyroxine 125 mcg tablet See Rx Instructions .ROUTE .COMPLEX Qty: 90 3RF Dose Instruction: TAKE 1 TABLET BY MOUTH DAILY Rx Instructions: TAKE 1 TABLET BY MOUTH DAILY furosemide 20 mg tablet See Rx Instructions .ROUTE .COMPLEX Qty: 180 3RF Dose Instruction: TAKE 1 TO 2 TABLETS BY MOUTH DAILY NEEDED FOR EDEMA Patient Comments: A couple of months ago Rx Instructions: TAKE 1 TO 2 TABLETS BY MOUTH DAILY NEEDED FOR EDEMA duloxetine 30 mg capsule,delayed release(DR/EC) See Rx Instructions .ROUTE .COMPLEX Qty: 180 1RF Dose Instruction: TAKE 2 CAPSULES BY MOUTH DAILY Rx Instructions: TAKE 2 CAPSULES BY MOUTH DAILY vitamin B complex tablet 1 tab PO DAILY ibuprofen 200 mg Tablet 200 mg PO Q6H PRN (Reason: Pain (Scale Score 1-3)) aspirin 81 mg Tablet,Delayed Release (Dr/Ec) 81 mg PO BID Qty: 14 0RF Referrals: Cruz Holt MD [Primary Care Provider] - Stand Alone Forms: Patient Portal/API
== END 2023-11-02 14:06 | disposition home or self-care (01) ==
PROVIDERS: Emergency Provider Emergency Medicine; Family Provider Family Medicine; PCP Family Medicine
DX: U07.1 COVID-19 (principal)
CPT/HCPCS: 99281

== ENCOUNTER → 2023-12-10 11:41 | Outpatient (CLI) | payer MEDICARE, SELFPAY ==
[2019-10-31 18:40] VITALS: BMI 50.4
[2023-12-11 19:53] LABS: Fecal Immunochemical Test Positive (Negative)
== END ==
PROVIDERS: Family Provider Family Medicine; PCP Family Medicine; Referring Provider Family Medicine; Visit Provider Family Medicine
DX: Z12.11 Encounter for screening for malignant neoplasm of colon (principal)
CPT/HCPCS: 82274

== ENCOUNTER → 2023-12-21 11:23 | Outpatient (CLI) | payer MEDICARE, SELFPAY ==
[2019-10-31 18:40] VITALS: BMI 50.4
--- NOTE | 2023-12-21 11:25 | DI.MRI.S_ITS ---
PROCEDURE: MR STROKE Pre- and post-contrast brain MRI, non-contrast brain MR angiogram, pre- and postcontrast neck MR angiogram INDICATIONS: 1 yr f/u brain MRI; continued headaches TECHNIQUE: Brain: Noncontrast axial T1 spin echo, axial T2 fast spin echo, sagittal and axial FLAIR, coronal T2 fast spin echo, axial gradient echo, axial diffusion and ADC through the brain. After the administration of contrast, axial 3D VIBE of the cranial vasculature and brain. Brain MRA: Non-contrast 3-D time of flight MR angiogram, with multiple qzmxcgp-jkemrniuq-ablpqrgvgz (MIP) reformats performed. Neck MRA: Axial and sagittal TruFISP through the neck. Coronal dynamic MR angiogram during administration of contrast in the arterial and venous phases, with 3-dimenstional nojqktf-wkdzqrhyy-nwunnleiwx (MIP) reformats constructed from subtraction images. COMPARISON: [facility], , MR STROKE, 01/02/2023, 12:47. FINDINGS: Image quality: Excellent. BRAIN: The ventricular system and cortical sulci demonstrate atrophy, consistent for the patient's stated age. There are areas of increased T2/FLAIR signal intensity within the periventricular and subcortical white matter. There is no acute intra-or extra axial fluid collection. No acute hemorrhage or midline shift. There is a 2.8 x 2.4 x 2.2 cm extradural enhancing left frontal mass consistent with meningioma, unchanged. Brainstem is unremarkable. There are no areas of restricted diffusion. Globes are symmetrical. Sinuses are aerated. Osseous structures are intact. BRAIN MR ANGIOGRAM: Anterior circulation: Intracranial internal carotid arteries are normal in size and enhancement. The flow within the paired anterior cerebral arteries is normal and symmetric. The flow within the middle cerebral arteries is normal and symmetric. The anterior communicating artery is seen. No stenoses, occlusions, or aneurysms. Posterior circulation: Slight right vertebral artery dominance. The visualized portions of the vertebral arteries demonstrate normal caliber, and join to form a normal appearing basilar artery. 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 P2 segment is patent.. No stenoses, occlusions, or aneurysms. NECK MR ANGIOGRAM: Carotids: Great vessels demonstrate a conventional anatomy as they arise from the aortic arch. The origins of the common carotid arteries appear patent. The calibers and courses of both common carotid arteries are normal. The bifurcation regions appear normal bilaterally. The internal carotid arteries demonstrate normal course and caliber. Posterior circulation: The origins of the vertebral arteries appear patent. More superior portions of both vertebral arteries demonstrate normal course and caliber, and join to form a normal appearing basilar artery. Miscellaneous: Subclavian arteries appear patent. Pre-contrast images through the neck show no soft tissue abnormalities. IMPRESSION: 1. No acute intracranial process. 2. Moderate atrophy and chronic microvascular ischemic changes. 3. Stable left frontal meningioma. 4. No areas of hemodynamically significant stenosis, vascular occlusion or aneurysmal dilation within the anterior circulation. 5. No areas of hemodynamically significant stenosis, vascular occlusion or aneurysmal dilation within the posterior circulation. 6. No areas of hemodynamically significant stenosis, vascular occlusion or aneurysmal dilation within the neck vasculature. Dictated by: Susanne Mata M.D. on 12/21/2023 at 16:30 Approved by: Susanne Mata M.D. on 12/21/2023 at 16:36
== END ==
LOC: MRI 11:23
PROVIDERS: Family Provider Family Medicine; PCP Family Medicine; Referring Provider Family Medicine; Visit Provider Family Medicine
DX: D32.0 Benign neoplasm of cerebral meninges (principal); R51.9 Headache, unspecified
CPT/HCPCS: 70548; 70553

== ENCOUNTER → 2024-01-15 11:41 | Outpatient (CLI) | payer MEDICARE, SELFPAY ==
[2019-10-31 18:40] VITALS: BMI 50.4
[2024-01-15 12:59] LABS: Add Manual Diff / Slide Review NO; Basophils Absolute Auto 0 /uL (0-100); Basophils Percent Auto 0.6 % (0-2); Eosinophils Absolute Auto 200 /uL (0-450); Eosinophils Percent Auto 5.2 % (2-4); Hematocrit 39.4 % (36-46); Hemoglobin 13.2 g/dL (12.0-16.0); Lymphocytes Absolute Auto 1300 /uL (1100-4500); Lymphocytes Percent Auto 26.9 % (25-40); Mean Corpuscular HGB Conc 33.5 % (30-36); Mean Corpuscular Hemoglobin 31.3 PG (26-34); Mean Corpuscular Volume 93.3 fL (80-100); Monocytes Absolute Auto 300 /uL (0-900); Monocytes Percent Auto 7.3 % (3-14); Neutrophils Absolute Auto 2800 /uL (1500-7000); Platelet Count 267 X10^3/uL (150-400); Red Blood Cell Count 4.22 X10^6/uL (4.0-5.2); Red Cell Distribution Width 14.1 % (11.6-14.8); White Blood Cell Count 4.6 X10^3/uL (4.5-11.0)
[2024-01-15 13:27] LABS: Alanine Aminotransferase 27 IU/L (<35); Albumin 4.3 g/dL (3.5-5.0); Albumin Globulin Ratio 1.4 (1.0-2.8); Alkaline Phosphatase 68 U/L (38-126); Aspartate Aminotransferase 35 IU/L (14-36); BUN Creatinine Ratio 26.1 (6-22); Bilirubin Total 1.2 mg/dL (0.2-1.3); Blood Urea Nitrogen 18 mg/dL (7-17); Calcium 9.6 mg/dL (8.4-10.2); Carbon Dioxide 25 mmol/L (22-32); Chloride 109 mmol/L (98-107); Cholesterol 187 mg/dL (140-199); Estimated Glomerular Filt Rate > 60 mL/min (>60); Glucose 96 mg/dL (80-110); HDL Cholesterol 70 mg/dL (40-60); HEMOLYSIS < 15 (0-50); LDL Cholesterol Calculated 100 mg/dL (<100); Potassium 4.4 mmol/L (3.4-5.1); Sodium 139 mmol/L (137-145); Total Protein 7.3 g/dL (6.3-8.2); Triglycerides 84 mg/dL (35-150)
[2024-01-15 13:58] LABS: TSH w/ Reflex to FT4 2.73 uIU/mL (0.47-4.68)
[2024-01-19 04:44] LABS: Apolipoprotein B 86 mg/dL (<90)
[2024-01-20 16:40] LABS: Lipoprotein (a) 151.6 nmol/L (<75.0)
== END ==
PROVIDERS: Family Provider Family Medicine; PCP Family Medicine; Referring Provider Family Medicine; Visit Provider Family Medicine
DX: E03.9 Hypothyroidism, unspecified (principal); I10 Essential (primary) hypertension; E78.2 Mixed hyperlipidemia
CPT/HCPCS: 36415; 80053; 80061; 82172; 83695; 84443; 85025

== ENCOUNTER → 2024-02-02 11:01 | Outpatient (CLI) | payer MEDICARE, SELFPAY ==
[2019-10-31 18:40] VITALS: BMI 50.4
[2024-02-02 11:43] LABS: Influenza A - CEPHEID Flu A NEGATIVE (NEGATIVE); Influenza B - CEPHEID Flu B NEGATIVE (NEGATIVE); Respiratory Syncytial Virus Negative (Negative)
[2024-02-02 12:08] LABS: COVID-19 CEPHEID 4-PLEX PCR Negative (Negative)
== END ==
PROVIDERS: Family Provider Family Medicine; PCP Family Medicine; Visit Provider Physician Assistant
DX: R05.1 Acute cough (principal)
CPT/HCPCS: 0241U

== ENCOUNTER → 2024-02-02 11:13 | Outpatient (CLI) | payer MEDICARE, SELFPAY ==
[2019-10-31 18:40] VITALS: BMI 50.4
--- NOTE | 2024-02-02 11:14 | DI.RAD.S_ITS ---
PROCEDURE: XR CHEST 2V INDICATIONS: cough and sinus problems x 1 week TECHNIQUE: 2 views of the chest were acquired. COMPARISON: [facility], CR, XR CHEST 2V, 09/22/2023, 11:29. [facility], CR, XR CHEST 2V, 03/02/2023, 10:37. FINDINGS: Surgical changes and devices: Bilateral shoulder arthroplasties. Lungs and pleura: Low lung volumes. Unchanged nodule is seen projecting over the left mid to lower lung measuring 1.3-1.4 centimeters. No dense consolidation or pleural effusion. Mild peribronchial thickening is present. Mediastinum: Normal heart size Bones and chest wall: Degenerative changes. IMPRESSION: Mild peribronchial thickening. This may represent edema or atypical infection/bronchitis. Left mid to lower lung 1.3-1.4 centimeter nodule, also seen previously. Consider future imaging surveillance to assess for resolution/stability. Dictated by: Julio Martinez M.D. on 02/02/2024 at 13:55 Approved by: Julio Martinez M.D. on 02/02/2024 at 13:57
== END ==
LOC: RAD 11:14
PROVIDERS: Family Provider Family Medicine; PCP Family Medicine; Referring Provider Physician Assistant; Visit Provider Physician Assistant
DX: R05.1 Acute cough (principal); R91.1 Solitary pulmonary nodule; E78.41 Elevated Lipoprotein(a)
CPT/HCPCS: 0241U; 71046

== ENCOUNTER 2024-03-03 12:15 | Day surgery (SDC) | payer MEDICARE, SELFPAY ==
[2019-10-31 18:40] VITALS: BMI 50.4
--- NOTE | 2024-03-03 | PATH_ITS ---
[facility] Accession Number: [id number] No. of containers..02 Tissue . 01 Material submitted: . PART A: colon - CECAL POLYPS PART B: colon - SIGMOID POLYP . 01 Diagnosis: Part A: CECAL POLYPS: Tubular adenomas. . Part B: SIGMOID POLYP: Colonic mucosa with benign lymphoid aggregate. No neoplasm identified. STO 03/08/2024 1539 Local . 01 Electronically signed: . Sincere Morales MD, Pathologist NPI- [id number] . 01 Gross description: . Part A: CECAL POLYPS: Received in formalin are 3 fragment(s) of pena, soft tissue measuring 0.3 x 0.2 x 0.2 cm to 0.8 x 0.4 x 0.4 cm submitted entirely in 1 cassette(s) . Part B: SIGMOID POLYP: Received in formalin is 1 fragment(s) of pena, soft tissue measuring 0.2 x 0.2 x 0.1 cm submitted entirely in 1 cassette(s) /RADU 03/08/2024 1539 Local . 01 Pathologist provided ICD-10: D12.0, K63.89 . 01 CPT . 618053, 520038 Specimen Comment: A courtesy copy of this report has been sent to [phone] Performed at: 01 [facility] [address] [place] [address] [address] [facility], [place], [place] [id number] MD Sincere Morales MD Phone: [phone]
[2024-03-03 12:53] VITALS: BP 176/81; PULSE 81; RESP 18; TEMP 36.2; O2SAT 97
[2024-03-03] MEDS: LACTATED RINGERS 1,000 ML 42 ML IV (13:06)
--- NOTE | 2024-03-03 13:27 | PM.HP.1 ---
History of Present Illness History of Present Illness Date Patient Seen: 03/03/24 Time Patient Seen: 13:28 Chief complaint: [facility] Narrative: Luther is an 78-year-old woman positive fit test. See the office note from January for details. She has not noted any blood since November. [facility] Medical History (Updated 02/02/24 @ 15:20 by Crystal Garnett PA-C) Elevated lipoprotein(a) Exertional dyspnea Meningioma Lumbar spinal stenosis Strep pharyngitis Hypothyroidism Left lower lobe pulmonary nodule HLD (hyperlipidemia) HTN (hypertension) Sleep apnea (~2011) Depression (~1959) Migraines (~1949) Rosacea (~2014) Eczema (~2009) Measles (~1949) Chicken pox (~1949) Anemia (~1952) Heavy menstrual period (~1979) Fibroids (~1979) Endometriosis (~1979) Hemorrhoid (~1961) Hyperthyroidism (~1965) Arthritis (~2000) Shoulder pain (~2009) Foot pain (~1959) Fibromyalgia (~1979) Ankle pain (~2009) Retinal tear (~2011) Tinnitus (~2012) Surgical History History of total replacement of right shoulder joint (10/31/19) Hx of bilateral cataract extraction (~2016) History of arthroplasty of left shoulder (02/17/17) Anesthesia Hx of laparoscopic gastric banding (~2011) History of knee replacement (~2002) Status post hysterectomy (~1988) Family History Grandmother No problems noted. Mother No problems noted. Grandfather No problems noted. Grandmother No problems noted. Social History household members: spouse Smoking Status: Former smoker alcohol intake: former Meds Home Medications and Allergies Home Medications Medication Instructions Recorded Confirmed Type multivitamin 1 cap PO DAILY ##0 05/30/11 03/03/24 History cholecalciferol (vitamin D3) 25 1,000 units PO QDAY ##0 10/02/12 03/03/24 History mcg (1,000 unit) capsule (Vitamin D3) ferrous fumarate 89 mg (29 mg 65 mg PO QDAY ##0 02/03/17 03/03/24 History iron) tablet diphenhydramine 25 1 ea PO HSP PRN Sleep ##0 06/23/17 03/03/24 History mg-acetaminophen 500 mg tablet (Acetaminophen PM) vitamin B complex 1 tab PO DAILY 02/23/19 03/03/24 History diclofenac sodium 1 % topical gel 4 gram topical QID #100 grams 05/01/20 03/03/[address] #1 ea 02/12/21 02/18/24 Rx aspirin 81 mg tablet,delayed 81 mg PO BID #14 tabs 03/11/23 03/03/24 Rx release ibuprofen 200 mg tablet 200 mg PO Q6H PRN Pain (Scale 03/11/23 03/03/24 History Score 1-3) lisinopril 10 mg tablet See Rx Instructions .Route 05/22/23 03/03/24 Rx .COMPLEX #360 tabs furosemide 20 mg tablet See Rx Instructions .Route 07/06/23 03/03/24 Rx .COMPLEX #180 tabs levothyroxine 125 mcg tablet See Rx Instructions .Route 07/06/23 03/03/24 Rx .COMPLEX #90 tabs meloxicam 15 mg tablet See Rx Instructions .Route 07/06/23 03/03/24 Rx .COMPLEX #90 tabs fluticasone propionate 50 1 spray intranasal BID #16 grams 02/02/24 03/03/24 Rx mcg/actuation nasal spray,suspension (Flonase Allergy Relief) guaifenesin 1,200 mg tablet, 1,200 mg PO Q12H #30 tabs 02/02/24 02/18/24 Rx extended release 12 hr lovastatin 40 mg tablet 80 mg (2 x 40 mg) PO QAM #240 tabs 02/09/24 03/03/24 Rx duloxetine 30 mg capsule,delayed See Rx Instructions .Route 02/29/24 03/03/24 Rx release .COMPLEX #180 caps Allergies Allergy/AdvReac Type Severity Reaction Status Date / Time Penicillins Allergy Intermediate HIVES Verified 03/03/24 12:37 etodolac AdvReac Mild NIGHTMARES?, Verified 03/03/24 12:37 UNSURE TAPE AdvReac Mild RASH WHEN Uncoded 02/18/24 10:16 ON 'SOFT PARTS OF SKIN' SILK TAPE OK Exam Vital Signs (past 8 hours): - 03/03/24 12:53 Temperature 97.2 F L Pulse Rate 81 Respiratory Rate 18 Blood Pressure 176/81 H Pulse Oximetry 97 Oxygen Delivery Method Room Air Oxygen Delivery Method Room Air Resp Effort & Inspection: normal respiratory effort Assessment & Plan Assessment and plan (1) Positive fecal immunochemical test: Status: Acute Plan We reviewed the risks and benefits of colonoscopy and she would like to proceed.
--- NOTE | 2024-03-03 14:19 | PM.OP.COLON ---
Operative Date/Time/Diagnoses Date of procedure: 03/03/24 Time of procedure: 14:19 Pre-op diagnosis: Positive fit test Post-op diagnosis: same Procedure & Clinicians Study performed: Colonoscopy Same procedure as scheduled: Yes Surgeon: Colton Perez Procedure Notes Procedure in detail: Surgeon: Colton Perez MD Anesthesia: Agus Garcia D.O. Procedure: The patient was brought to the endoscopy suite, placed in left lateral decubitus position. The patient was connected to monitoring devices. A time-out was performed. Sedation was administered. Once the patient was adequately sedated, a digital rectal exam was performed and was normal. The scope was then inserted and advanced to the cecum where the appendiceal orifice was identified and photographed. The scope was then slowly withdrawn over greater than 6 minutes. The mucosa was thoroughly inspected. There were 3 small polyps in the cecum, each about 4 mm and each removed with a cold snare and sent together. There was a 5 mm polyp in the sigmoid colon removed with a cold snare. There was sigmoid diverticulosis. The scope was retroflexed in the rectum. The scope was straightened and removed. The patient was awakened and brought to recovery. Scope withdrawal time: 19 minutes Sedation time: 27 minutes EBL: 5 mL Findings: 3 small cecal polyps and 1 small sigmoid polyp, diverticulosis Post-procedure Disposition: PACU
[2024-03-03 14:20] VITALS: BP 114/48; PULSE 76; RESP 14; TEMP 36.6; O2SAT 94
[2024-03-03 14:25] VITALS: BP 126/58; PULSE 79; RESP 15; O2SAT 94
[2024-03-03 14:31] VITALS: BP 142/71; PULSE 81; RESP 14; O2SAT 98
== END 2024-03-03 14:46 | disposition home or self-care (01) ==
PROVIDERS: Family Provider Family Medicine; PCP Family Medicine; Referring Provider Surgery; Visit Provider Surgery
PROC: 0DJD8ZZ Inspection of Lower Intestinal Tract, Via Natural or Artificial Opening Endoscopic (ICD-10-PCS; CPT 45378; principal; 2024-03-03 13:15)
DX: Z12.11 Encounter for screening for malignant neoplasm of colon (principal); R19.5 Other fecal abnormalities; K57.30 Diverticulosis of large intestine without perforation or abscess without bleeding; D12.0 Benign neoplasm of cecum; K63.5 Polyp of colon
CPT/HCPCS: 45385; 45380; J2704

== ENCOUNTER → 2024-03-10 13:50 | Outpatient (CLI) | payer MEDICARE, SELFPAY ==
[2019-10-31 18:40] VITALS: BMI 50.4
--- NOTE | 2024-03-10 13:51 | DI.CT.S_ITS ---
PROCEDURE: CT CHEST WO CON INDICATIONS: Left Lung nodule TECHNIQUE: Noncontrast 5 mm thick sections acquired from the pulmonary apices to the posterior costophrenic angles. 1 mm lung window, 5 mm thick coronal and sagittal and 7 mm axial MIP reformats were then acquired. For radiation dose reduction, the following was used: automated exposure control, adjustment of mA and/or kV according to patient size. COMPARISON: [facility], CT, CT CHEST WO CON, 12/18/2022, 11:17. FINDINGS: Image quality: Diagnostic Lungs: 8 mm pulmonary nodule in the right lung apex (series 3, image 59), that has a more solid appearance in comparison to prior exam. 3 mm pulmonary nodule in the superior segment of the right lower lobe (series 3, image 130), unchanged from prior exam. There is adjacent mild ground-glass opacity across the fissure in the right upper lobe, unchanged from prior exam. 3 mm pulmonary nodule in the right lower lobe (3:178), unchanged from prior exam. There is interval development of 1.1 cm pulmonary nodule in the right upper lobe along the fissure (3:171). 1.7 cm subpleural pulmonary nodule in the left lower lobe (series 3, image 177), previously 1.4 cm, increased in size from prior exam. Additional scattered sub 5 mm pulmonary nodules in the right and left lung, unchanged from prior exam. No pleural effusion or pneumothorax. No pulmonary edema. Soft tissue/mediastinum: Moderate calcification of the thoracic aorta. No thoracic aortic aneurysm. Moderate aortic annular calcification. The heart is normal in size. No pericardial effusion. Three-vessel coronary artery calcification. No mediastinum, hilar, or axillary lymphadenopathy. Visualized abdomen: Gastric Band, incompletely visualized. The right adrenal gland is not well visualized. Bones: Status post bilateral shoulder arthroplasty. Small sclerotic lesion seen the right lateral rib, unchanged from prior exam, nonspecific. Bridging osteophytes of the thoracic spine, consistent with diffuse idiopathic skeletal hyperostosis. IMPRESSION: Multiple pulmonary nodules, progressed from prior exam. For reference, the 1.7 cm subpleural pulmonary nodule in the left lower lobe demonstrates interval increase in size. Recommend further evaluation with PET-CT or short-term follow-up CT. Dictated by: Cher Lewis M.D. on 03/10/2024 at 20:05 Approved by: Cher Lewis M.D. on 03/10/2024 at 20:18
== END ==
PROVIDERS: Family Provider Family Medicine; PCP Family Medicine; Referring Provider Family Medicine; Visit Provider Family Medicine
DX: R91.8 Other nonspecific abnormal finding of lung field (principal); I70.0 Atherosclerosis of aorta; I25.10 Atherosclerotic heart disease of native coronary artery without angina pectoris; Z96.612 Presence of left artificial shoulder joint; Z96.611 Presence of right artificial shoulder joint
CPT/HCPCS: 71250

== ENCOUNTER → 2024-09-06 14:49 | Outpatient (CLI) | payer MEDICARE, SELFPAY ==
[2019-10-31 18:40] VITALS: BMI 50.4
== END ==
PROVIDERS: Family Provider Family Medicine; PCP Family Medicine; Referring Provider Internal Medicine; Visit Provider Internal Medicine
DX: R06.02 Shortness of breath (principal); R91.1 Solitary pulmonary nodule; Z87.891 Personal history of nicotine dependence; R05.3 Chronic cough; J45.40 Moderate persistent asthma, uncomplicated
CPT/HCPCS: 94060; 94726; 94729

== ENCOUNTER 2024-09-14 13:33 | Outpatient (RCR) | payer MEDICARE, SELFPAY ==
[2019-10-31 18:40] VITALS: BMI 50.4
--- NOTE | 2024-09-14 14:25 | PT.OIE ---
Current Diagnoses Unspecified mononeuropathy of bilateral lower limbs (09/14/24) Past Medical History (Last Reviewed 06/01/24 @ 19:35 by Lauren Granger PA-C) Anemia (~1952) Ankle pain (~2009) Arthritis (~2000) Chicken pox (~1949) Depression (~1959) Eczema (~2009) Elevated lipoprotein(a) Endometriosis (~1979) Exertional dyspnea Fibroids (~1979) Fibromyalgia (~1979) Foot pain (~1959) Heavy menstrual period (~1979) Hemorrhoid (~1961) HLD (hyperlipidemia) HTN (hypertension) Hyperthyroidism (~1965) Hypothyroidism Left lower lobe pulmonary nodule Lumbar spinal stenosis Measles (~1949) Meningioma Migraines (~1949) Obesity Retinal tear (~2011) Rosacea (~2014) Shoulder pain (~2009) Sleep apnea (~2011) Strep pharyngitis Tinnitus (~2012) Past Surgical History (Last Reviewed 06/01/24 @ 19:35 by Lauren Granger PA-C) Anesthesia History of arthroplasty of left shoulder (02/17/17) History of knee replacement (~2002) History of total replacement of right shoulder joint (10/31/19) Hx of bilateral cataract extraction (~2016) Hx of laparoscopic gastric banding (~2011) Status post hysterectomy (~1988) Visit Care Team Role Provider Type Cruz Holt MD Attending Provider Physician Family Provider Primary Care Provider Referring Provider Specialty: Family Practice Address: [address] [place] [address], [facility] Email: [email or web address] Physical Therapy Initial Evaluation PT-OP-A Visit Information Start: 09/14/24 11:16 Freq: Status: Active Protocol: Document 09/14/24 13:48 MB (Rec: 09/14/24 14:05 MB [id number]) Out-Patient Physical Therapy Visit Information Visit Information Visit Type Initial Evaluation Visit Note [employer] Medicare Visit Start Time 13:48 Visit Stop Time 14:18 Visit Number 1 Number of BLOCK CABLEMAN Visits 0 Evaluation Information Evaluation Date 09/14/24 Precautions Precautions ROMERO PT-OP-B Current Condition Start: 09/14/24 11:16 Freq: Status: Active Protocol: Document 09/14/24 13:48 MB (Rec: 09/14/24 14:05 [id number]) Current Condition History of Current Condition Onset Date 1 year Current Complaints Neuropathy in the feet History of Current Condition Pt with history of COVID and upper respiratory viruses last year. She has been recently diagnosed with asthma and she has an inhaler. She is dyspneic with all walking. O2 sats do not read with PT after walking to room d/t cold finger today. BP cuff does not read accurately to check orthostatics on upper arm and B arm girth large. PMH includes smoking, obesity, lung nodules, spinal stenosis, muscle pain under right scapula. If she stands for half hour, her feet go to sleep and if she stands longer, it goes up her legs. It feels like her feets have socks on them. She never wears shoes in the house and she uses her cane in right hand. She does not wear ankle brace on right foot because it is uncomfortable. She has a lot of falls. She has a walker and she does not use it. It is a rollator. She doesn't have room in the house for the cane or the rollator. She carries her dog up and down the steps and using the new inhaler has helped. PMH includes two knee replacements on the right. She uses Voltaren on her knees and right scapula. Treatment Goals Patient/Caregiver Goals Unsure why she is coming to PT , she does not have any goals. PT-OP-C Subjective Start: 09/14/24 11:16 Freq: Status: Active Protocol: Document 09/14/24 13:48 MB (Rec: 09/14/24 14:05 [id number]) OP-PT Subjective Patient Comments Patient Comments See history of current condition PT-OP-G Mobility & Gait Start: 09/14/24 11:16 Freq: Status: Active Protocol: Document 09/14/24 13:48 MB (Rec: 09/14/24 14:05 MB [id number]) OP Gait Assessment Comments Gait Comments Trendelenburg gait with B knee valgus greater on the left, flat feet with WB on the outside of the ankles, wide YULIANA, decreased step-length and foot clearance PT-OP-T Assessment and Plan Start: 09/14/24 11:16 Freq: Status: Active Protocol: Document 09/14/24 13:48 MB (Rec: 09/14/24 14:25 MB [id number]) Physical Therapy Assessment Rehab Potential Rehabilitation Potential Poor Evaluation Complexity Number of Personal Factors/Comorbidities 3 or More Number of Body Systems Impaired 4 or More Clinical Presentation at Evaluation Evolving Impairments Impairments Activity Tolerance,Balance, Functional Activities, Functional Mobility,Gait,Pain, Posture,ROM Assessment Summary Assessment Pt is an 79 y/o female presenting with complex medical history including orthopedic surgeries, stenosis , profound LE numbness when standing up on feet, ROMERO and recent dx of asthma and morbid obesity. During interview, pt states that she is tired and does not really feel like doing a therapy course. Discussed options for LRAD training and benefits of using rollator in the house to help with imbalance and falls from neuropathy and stenosis symptoms. Pt states there is not enough room in the house to use AD. Discussed balance training and possible referral to another clinic for aquatic PT. She is not interested in these either. Pt is content with her quality of life and she likes to read and knit. She will think about using her stationary bike and PT is cocerned about pulmonary activity tolerance given ROMERO with short gait. PT could not get pulse ox or BP readings today. Will d/c OPPT. Physical Therapy Plan Frequency and Duration Frequency of Treatment Eval only Duration of treatment (weeks) 0 Plan of Care Start Date 09/14/24 Plan of Care End Date 09/14/24
== END 2024-09-20 08:52 | disposition home or self-care (01) ==
LOC: PHYS 13:33
PROVIDERS: Family Provider Family Medicine; PCP Family Medicine; Referring Provider Family Medicine; Visit Provider Family Medicine
DX: G57.93 Unspecified mononeuropathy of bilateral lower limbs (principal)
CPT/HCPCS: 97161

== ENCOUNTER → 2024-09-17 13:06 | Outpatient (CLI) | payer MEDICARE, SELFPAY ==
[2019-10-31 18:40] VITALS: BMI 50.4
--- NOTE | 2024-09-17 13:07 | DI.CT.S_ITS ---
PROCEDURE: CT CHEST WO CON INDICATIONS: f/u lung nodule right apex TECHNIQUE: Noncontrast 5 mm thick sections acquired from the pulmonary apices to the posterior costophrenic angles. 1 mm lung window, 5 mm thick coronal and sagittal and 7 mm axial MIP reformats were then acquired. For radiation dose reduction, the following was used: automated exposure control, adjustment of mA and/or kV according to patient size. COMPARISON: [facility], CT, CT CHEST WO CON, 12/18/2022, 11:17. [facility], [place], [place] PET CT FUSION SKULL 2 THIGH, 03/30/2024, 10:57. [facility], CT, CT CHEST WO CON, 03/10/2024, 14:02. FINDINGS: Image quality: Diagnostic. Lower Neck: No enlarged lymph nodes. Thyroid: No thyroid nodules which require sonographic follow up, per consensus guidelines. Axillae: No enlarged lymph nodes. Chest Wall: Unremarkable. Bones: Unremarkable. Lungs and Pleura: No pneumothorax or pleural effusions. Stable juxtapleural left basilar pulmonary nodule, 1.7 cm on previous image 180 of series 3 and 1.7 cm on current image 171 of series 3. It has FDG activity that is below background. It is likely benign. Heart: Heart size is normal. No pericardial effusion. Severe coronary artery calcifications. Thoracic Vessels: The aorta and pulmonary arteries demonstrate normal size. Mediastinum and Cristina: No enlarged lymph nodes. Esophagus: No wall thickening. No hiatal hernia. Upper Abdomen: Visualized upper abdomen solid organs and bowel loops appear normal. IMPRESSION: Stable size and appearance of a 1.7 cm juxtapleural left basilar pulmonary nodule. As noted, it was not suspicious on the PET-CT. Recommend six-month follow-up CT chest Severe coronary artery calcifications. Dictated by: Yonny Stuart M.D. on 09/18/2024 at 10:36 Approved by: Yonny Stuart M.D. on 09/18/2024 at 11:00
== END ==
PROVIDERS: Family Provider Family Medicine; PCP Family Medicine; Referring Provider Family Medicine; Visit Provider Family Medicine
DX: R91.1 Solitary pulmonary nodule (principal); I25.10 Atherosclerotic heart disease of native coronary artery without angina pectoris
CPT/HCPCS: 71250

== ENCOUNTER 2024-11-06 11:50 | Emergency (ER) | payer MEDICARE, SELFPAY ==
[2019-10-31 18:40] VITALS: BMI 50.4
[2024-11-06 12:03] VITALS: BP 180/78; PULSE 73; RESP 16; TEMP 36.3; O2SAT 98; BMI 44.6
--- NOTE | 2024-11-06 12:16 | ED.FALL ---
HPI - Fall <Jolie Johnson PA-C - Last Filed: 11/06/24 13:57> General Chief Complaint: Fall Stated Complaint: Fall, head laceration no blood thinners Time Seen by Provider: 11/06/24 12:15 Source: patient Mode of arrival: Ambulatory History of Present Illness HPI Narrative: 79-year-old female presents for ground level fall, she was reaching over to pick and shovel man 1 of her dogs when she lost her footing tripping and striking her left forehead on a concrete wall. She did not go fully to ground, she denied any precipitating events. She is denying any headache, nausea, lightheadedness, dizziness. She is unsure of when her last tetanus was. She does take 81 mg aspirin daily. She endorsed a twisting movement and caught herself, she has a little soreness in her right upper trapezium and lower back but she does have chronic back pain. She is denying any new symptoms. No numbness tingling loss of sensation or weakness. History is significant for benign brain tumor which is surveilled with regular scans she states her last 1 was earlier this year. Per her chart she had a brain MRI in December of 2023 that shows a stable left frontal meningioma. She had a PET scan in March of 2024 which showed a stable left lower lung nodule likely benign. She is really without any acute complaint at this point although she did sustain a small laceration to her forehead. All other systems are reviewed and are negative. Related Data Home Medications Medication Instructions Recorded Confirmed multivitamin 1 cap PO DAILY ##0 05/30/11 10/03/24 cholecalciferol (vitamin D3) 25 1,000 units PO QDAY ##0 10/02/12 10/03/24 mcg (1,000 unit) capsule (Vitamin D3) ferrous fumarate 89 mg (29 mg 65 mg PO QDAY ##0 02/03/17 10/03/24 iron) tablet diphenhydramine 25 1 ea PO HSP PRN Sleep ##0 06/23/17 10/03/24 mg-acetaminophen 500 mg tablet (Acetaminophen PM) vitamin B complex 1 tab PO DAILY 02/23/19 10/03/24 ibuprofen 200 mg tablet 200 mg PO Q6H PRN Pain (Scale 03/11/23 10/03/24 Score 1-3) duloxetine 30 mg capsule,delayed 60 mg PO DAILY 10/03/24 10/03/24 release furosemide 20 mg tablet 40 mg PO DAILY PRN edema 10/03/24 10/03/24 levothyroxine 125 mcg tablet 125 mcg PO DAILY 10/03/24 10/03/24 lisinopril 10 mg tablet 20 mg PO BID 10/03/24 10/03/24 meloxicam 15 mg tablet 15 mg PO DAILY 10/03/24 10/03/24 Previous Rx's Medication Instructions Recorded disabled parking permit #1 ea 02/12/21 aspirin 81 mg tablet,delayed 81 mg PO BID #14 tabs 03/11/23 release lovastatin 40 mg tablet 80 mg (2 x 40 mg) PO QAM #240 tabs 02/09/24 tirzepatide 5 mg/0.5 mL 7.5 mg (0.75 mL) SUBCUT QWEEK #2 mL 09/27/24 subcutaneous pen injector fluticasone 250 mcg-salmeterol 50 1 inh inhalation BID #60 ea 10/03/24 mcg/dose blistr powdr for inhalation Allergies Allergy/AdvReac Type Severity Reaction Status Date / Time Penicillins Allergy Intermediate HIVES Verified 11/06/24 12:12 etodolac AdvReac Mild NIGHTMARES?, Verified 11/06/24 12:12 UNSURE TAPE AdvReac Mild RASH WHEN Uncoded 11/06/24 12:12 ON 'SOFT PARTS OF SKIN' SILK TAPE OK Patient History <Jolie Johnson PA-C - Last Filed: 11/06/24 13:57> Medical History Obesity Elevated lipoprotein(a) Exertional dyspnea Meningioma Lumbar spinal stenosis Strep pharyngitis Hypothyroidism Left lower lobe pulmonary nodule HLD (hyperlipidemia) HTN (hypertension) Sleep apnea (~2011) Depression (~1959) Migraines (~1949) Rosacea (~2014) Eczema (~2009) Measles (~1949) Chicken pox (~1949) Anemia (~1952) Heavy menstrual period (~1979) Fibroids (~1979) Endometriosis (~1979) Hemorrhoid (~1961) Hyperthyroidism (~1965) Arthritis (~2000) Shoulder pain (~2009) Foot pain (~1959) Fibromyalgia (~1979) Ankle pain (~2009) Retinal tear (~2011) Tinnitus (~2012) Surgical History History of total replacement of right shoulder joint (10/31/19) Hx of bilateral cataract extraction (~2016) History of arthroplasty of left shoulder (02/17/17) Anesthesia Hx of laparoscopic gastric banding (~2011) History of knee replacement (~2002) Status post hysterectomy (~1988) Family History Grandmother No problems noted. Mother No problems noted. Grandfather No problems noted. Grandmother No problems noted. Social History household members: spouse Smoking Status: Former smoker alcohol intake: former Smoking Status: Former smoker Exam <Jolie Johnson PA-C - Last Filed: 11/06/24 13:57> Initial Vital Signs Initial Vital Signs: Vital Signs Temperature 97.3 F L 11/06/24 12:03 Pulse Rate 73 11/06/24 12:03 Respiratory Rate 16 11/06/24 12:03 Blood Pressure 180/78 H 11/06/24 12:03 Pulse Oximetry 98 11/06/24 12:03 Oxygen Delivery Method Room Air 11/06/24 12:03 Vital signs reviewed and are normal except for elevated systolic in a known hypertension patient. Const General: cooperative, healthy appearing, comfortable, well developed, well groomed and No acute distress Other: Smiling, ambulatory with cane, no distress. Alert and oriented x4. [facility] Head: normocephalic, No contusion and laceration (2 cm linear laceration left forehead subcutaneous fat seen) Ears: hearing grossly normal bilaterally, external ears normal, TM's normal bilaterally, EAC's normal, mastoids normal and no periauricular adenopathy Nose: external nose normal and nares normal Face and sinus: normal facial exam, sinuses nontender and face symmetric Mouth: oral mucosae normal, lip normal, tongue normal and oropharynx normal Teeth and gingiva: dentition normal and gingiva normal Throat: posterior oropharynx normal Eyes General: Yes appearance normal, both eyes and all related structures Visual Joshua: normal visual joshua by confrontation Alignment and Position: alignment normal Periorbital: periorbital findings normal Eyelids: eyelids normal Conjunctivae: conjunctivae normal Pupils: PERRL EOM: EOM intact bilaterally Neck Neck: normal visual inspection, full ROM, trachea midline and supple Other: No focal bony midline tenderness. Slight tenderness without guarding in her right upper trapezium, no palpable spasm. Chest Chest: normal inspection of the chest Resp Effort & Inspection: normal respiratory effort and able to speak in complete sentences Auscultation: clear to auscultation bilaterally, no rales, no rhonchi and no wheezes Cardio Rate: regular rate Rhythm: regular rhythm Back/Spine/Pelvis Back: normal to inspection, No back tenderness, No CVA tenderness and No ecchymosis Cervical Spine: cervical ROM normal Thoracic/Lumbar Spine: thoracic and lumbar spine normal to inspection and straight leg raise negative bilaterally Other: No focal bony midline tenderness, mild tenderness in the paraspinous tissues of the lumbar spine without guarding right greater than left. Skin General: elasticity normal and turgor normal Neuro General: patient alert, patient awake and patient oriented x3 Cranial Nerves: CN's II-XI intact bilaterally Extrem General: normal to inspection and full ROM Other: Able to rise from a seated position on her own, ambulance with a cane, no assistance required to go to the toilet. <Courtney Swartz DO - Last Filed: 11/07/24 09:23> Initial Vital Signs Initial Vital Signs: Vital Signs Temperature 97.3 F L 11/06/24 12:03 Pulse Rate 73 11/06/24 12:03 Respiratory Rate 16 11/06/24 12:03 Blood Pressure 180/78 H 11/06/24 12:03 Pulse Oximetry 98 11/06/24 12:03 Oxygen Delivery Method Room Air 11/06/24 12:03 Procedures <Jolie Johnson PA-C - Last Filed: 11/06/24 13:57> Laceration Repair Laceration 1: Time of procedure: 13:24 Site: scalp Side (If applicable): left Size (cm): 2 Description: linear Depth: simple, single layer Local Anesthetic: lidocaine 1% Amount of anesthesia used (mL): 2 Pre-repair: wound explored, irrigated extensively and deep structures intact Skin layer closed with: nylon Skin layer suture size: 4-0 Number of sutures: 3 Technique: simple, interrupted Course <ARAVIND Lozada Last Filed: 11/06/24 13:57> Orders Ordered: Discontinued Medications Diphtheria/Tetanus/Acell Pertussis (Tet,Diph,Pertuss(Acell),Vac/Pf 0.5 Ml Syringe) 0.5 ml IM .ONCE ONE Stop: 11/06/24 12:48 Last Admin: 11/06/24 12:58 Dose: 0.5 ml Documented By: RL Lidocaine HCl (Lidocaine 1% (Pf) 5 Ml) 5 ml INJ NOW ONE Stop: 11/06/24 12:48 Last Admin: 11/06/24 12:58 Dose: 5 ml Documented By: RL Vital Signs Vital signs: Vital Signs - 8 hr 11/06/24 12:03 11/06/24 13:45 Temperature 97.3 F L Pulse Rate 73 70 Respiratory Rate 16 16 Blood Pressure 180/78 H 143/65 H Pulse Oximetry 98 96 Oxygen Delivery Method Room Air Room Air <Courtney Swartz DO - Last Filed: 11/07/24 09:23> Orders Ordered: Discontinued Medications Diphtheria/Tetanus/Acell Pertussis (Tet,Diph,Pertuss(Acell),Vac/Pf 0.5 Ml Syringe) 0.5 ml IM .ONCE ONE Stop: 11/06/24 12:48 Last Admin: 11/06/24 12:58 Dose: 0.5 ml Documented By: RL Lidocaine HCl (Lidocaine 1% (Pf) 5 Ml) 5 ml INJ NOW ONE Stop: 11/06/24 12:48 Last Admin: 11/06/24 12:58 Dose: 5 ml Documented By: RL Vital Signs Vital signs: Vital Signs - 8 hr 11/06/24 12:03 11/06/24 13:45 Temperature 97.3 F L Pulse Rate 73 70 Respiratory Rate 16 16 Blood Pressure 180/78 H 143/65 H Pulse Oximetry 98 96 Oxygen Delivery Method Room Air Room Air MDM - Fall <Jolie Johnson PA-C - Last Filed: 11/06/24 13:57> MDM Narrative Medical decision making narrative: Mechanical fall she did not go to ground, she struck her forehead on a concrete surface wall, there were no precipitating events. She ambulates just fine she has not complaining of any headache, no focal neurologic findings on examination. She has no midline tenderness, she ambulates with a cane without difficulty. A little tender in the right upper trapezium but full range of motion to her upper extremities as well as her lower extremities. The laceration was repaired with nylon 3 simple interrupted sutures placed well-tolerated. She is here with her , we discussed red flag warning signs and to seek medical attention immediately if she does develop any worrisome symptoms, headache, lightheadedness or any other concerns she may call 911 or seek medical attention at the closest facility. Discharge Plan Departure Patient Disposition: Home Clinical Impression: Laceration, Strain of muscle and tendon of back wall of thorax, initial encounter Fall Qualifiers: Encounter type: initial encounter Qualified Code(s): W19.XXXA - Unspecified fall, initial encounter Instructions: How to Prevent Falls, How to Care for a Surgical Wound-Stitches Activity Restrictions/Additional Instructions: You should have your stitches out in about 5 days, I recommend our walk-in clinic on [facility] [address] They will be open from 7:00 a.m. to 7:00 p.m. on Thursday. Try to keep the area dry for the next 48 hours, no submersion, thereafter gentle soap and water cleanse, the dressing should remain on for at least 1 day. Your tetanus was updated and it was good for 10 years. You may take Tylenol as needed for pain. Regarding your upper shoulder muscles and low back pain I recommend a heating pad, and or ice, to avoid stiffness. Please seek medical attention if anything changes or you develop any new worrisome symptoms. Prescriptions: No Action multivitamin Capsule 1 cap PO DAILY Qty: 0 cholecalciferol (vitamin D3) [Vitamin D3] 1,000 unit Capsule 1,000 units PO QDAY Qty: 0 ferrous fumarate 89 MG tablet 65 mg PO QDAY Qty: 0 diphenhydramine-acetaminophen [Acetaminophen PM] 500 MG/25 MG tablet 1 ea PO HSP PRN (Reason: Sleep) Qty: 0 (DME) disabled parking permit See Rx Instructions .Route .MEDSUPPLY Qty: 1 0RF Rx Instructions: valid for 5 years lovastatin 40 mg tablet 80 mg PO QAM Qty: 240 3RF vitamin B complex tablet 1 tab PO DAILY tirzepatide 5 mg/0.5 mL pen injector 7.5 mg SUBCUT QWEEK Qty: 2 2RF ibuprofen 200 mg Tablet 200 mg PO Q6H PRN (Reason: Pain (Scale Score 1-3)) aspirin 81 mg Tablet,Delayed Release (Dr/Ec) 81 mg PO BID Qty: 14 0RF levothyroxine 125 mcg tablet 125 mcg PO DAILY lisinopril 10 mg tablet 20 mg PO BID furosemide 20 mg tablet 40 mg PO DAILY PRN (Reason: edema) Patient Comments: A couple of months ago meloxicam 15 mg tablet 15 mg PO DAILY duloxetine 30 mg capsule,delayed release(DR/EC) 60 mg PO DAILY fluticasone propion-salmeterol 250-50 mcg/dose blister with device 1 inh inhalation BID Qty: 60 11RF Rx Instructions: rinse mouth with water, gargle and spit after each use Referrals: Cruz Holt MD [Primary Care Provider] - Stand Alone Forms: Patient Portal/API/Survey ED Sign-out <Courtney Swartz DO - Last Filed: 11/07/24 09:23> Cosign ED Attending Darekature Attestation: I was available for consultation.
[2024-11-06] MEDS: LIDOCAINE 1% (PF) 5 ML INJ (12:58)
[2024-11-06] MEDS: TET,DIPH,PERTUSS(ACELL),VAC/PF 0.5 ML SYRINGE IM (12:58)
[2024-11-06 13:45] VITALS: BP 143/65; PULSE 70; RESP 16; O2SAT 96
== END 2024-11-06 13:50 | disposition home or self-care (01) ==
PROVIDERS: Emergency Provider Physician Assistant Medical; Family Provider Family Medicine; PCP Family Medicine
DX: S01.01XA Laceration without foreign body of scalp, initial encounter (principal); S29.012A Strain of muscle and tendon of back wall of thorax, initial encounter; W01.0XXA Fall on same level from slipping, tripping and stumbling without subsequent striking against object, initial encounter; Y93.89 Activity, other specified; Z23 Encounter for immunization
CPT/HCPCS: 12001; 90471; 99283; 99284; 90715

== ENCOUNTER → 2024-11-18 11:23 | Outpatient (CLI) | payer MEDICARE, SELFPAY ==
[2019-10-31 18:40] VITALS: BMI 50.4
--- NOTE | 2024-11-18 11:24 | DI.RAD.S_ITS ---
PROCEDURE: XR KNEE LT 3V INDICATIONS: left knee pain TECHNIQUE: 3 views of the knee were acquired. COMPARISON: None. FINDINGS: Bones: There are no osseous abnormalities. Joints: The tibialfemoral and patellofemoral joints show severe degeneration. Small effusion noted. Soft tissues: Normal IMPRESSION: Severe patellofemoral and tibial femoral degenerative change. Small effusion. . Dictated by: Amol Fernandez M.D. on 11/18/2024 at 13:19 Approved by: Amol Fernandez M.D. on 11/18/2024 at 13:19
== END ==
PROVIDERS: Family Provider Family Medicine; PCP Family Medicine; Referring Provider Family Medicine; Visit Provider Family Medicine
DX: M25.562 Pain in left knee (principal); M25.461 Effusion, right knee
CPT/HCPCS: 73562

== ENCOUNTER → 2025-01-27 10:18 | Outpatient (CLI) | payer MEDICARE, SELFPAY ==
[2019-10-31 18:40] VITALS: BMI 50.4
[2025-01-27 11:07] LABS: Add Manual Diff / Slide Review NO; Basophils Absolute Auto 0 /uL (0-100); Basophils Percent Auto 0.8 % (0-2); Eosinophils Absolute Auto 300 /uL (0-450); Eosinophils Percent Auto 4.6 % (2-4); Hematocrit 39.1 % (36-46); Hemoglobin 13.1 g/dL (12.0-16.0); Lymphocytes Absolute Auto 1300 /uL (1100-4500); Lymphocytes Percent Auto 23.6 % (25-40); Mean Corpuscular HGB Conc 33.5 % (30-36); Mean Corpuscular Hemoglobin 30.6 PG (26-34); Mean Corpuscular Volume 91.4 fL (80-100); Monocytes Absolute Auto 400 /uL (0-900); Monocytes Percent Auto 6.8 % (3-14); Neutrophils Absolute Auto 3700 /uL (1500-7000); Neutrophils Percent Auto 64.2 % (50-75); Platelet Count 296 X10^3/uL (150-400); Red Blood Cell Count 4.28 X10^6/uL (4.0-5.2); Red Cell Distribution Width 14.3 % (11.6-14.8); White Blood Cell Count 5.7 X10^3/uL (4.5-11.0)
[2025-01-27 11:14] LABS: Hemoglobin A1C% w Est Avg Glu 5.1 % (4.0-6.0)
[2025-01-27 11:58] LABS: Alanine Aminotransferase 21 IU/L (<35); Albumin 4.5 g/dL (3.5-5.0); Albumin Globulin Ratio 1.8 (1.0-2.8); Alkaline Phosphatase 86 U/L (38-126); Aspartate Aminotransferase 30 IU/L (14-36); BUN Creatinine Ratio 28.9 (6-22); Blood Urea Nitrogen 22 mg/dL (7-17); Calcium 10.1 mg/dL (8.4-10.2); Carbon Dioxide 23 mmol/L (22-32); Chloride 106 mmol/L (98-107); Cholesterol 190 mg/dL (140-199); Estimated Glomerular Filt Rate > 60 mL/min (>60); Globulin 2.5 g/dL (1.7-4.1); Glucose 89 mg/dL (80-110); HDL Cholesterol 74 mg/dL (40-60); HEMOLYSIS < 15 (0-50); LDL Cholesterol Calculated 102 mg/dL (<100); Potassium 4.6 mmol/L (3.4-5.1); Sodium 139 mmol/L (137-145); Triglycerides 72 mg/dL (35-150)
[2025-01-27 12:19] LABS: Microalbumin Urine Random 3.9 mg/dL (0-1.6)
[2025-01-27 12:22] LABS: TSH w/ Reflex to FT4 3.08 uIU/mL (0.47-4.68)
[2025-01-27 13:24] LABS: Free T3, Triiodothyronine Free 3.21 pg/mL (2.77-5.27)
[2025-01-28 04:08] LABS: Apolipoprotein B 78 mg/dL (<90)
[2025-01-28 10:36] LABS: Rubeola Measles IgG > 300.0 AU/mL (Immune >16.4)
== END ==
PROVIDERS: Family Provider Family Medicine; PCP Family Medicine; Referring Provider Family Medicine; Visit Provider Family Medicine
DX: Z01.84 Encounter for antibody response examination (principal); E66.9 Obesity, unspecified; E78.41 Elevated Lipoprotein(a); I10 Essential (primary) hypertension; E78.5 Hyperlipidemia, unspecified; E03.9 Hypothyroidism, unspecified; D32.9 Benign neoplasm of meninges, unspecified
CPT/HCPCS: 36415; 80053; 80061; 82043; 82172; 82570; 83036; 84443; 84481; 85025; 86735; 86762; 86765

== ENCOUNTER → 2025-02-06 14:55 | Outpatient (CLI) | payer MEDICARE, SELFPAY ==
[2019-10-31 18:40] VITALS: BMI 50.4
--- NOTE | 2025-02-06 14:57 | DI.ECHO.S_ITS ---
[place] [facility]+ [facility] : : [address] : : [place] : : [id number] : : Phone: [phone] Echocardiogram Report + + :Name: HUNTER WRIGHT Study Date: 02/06/2025 Height: 64 in : :[facility] ReadingLocation: Weight: 260 lb : : Gender: Female BSA: 2.2 m2 : :: 1945 Age: 79 yrs BP: 185/77 mmHg: :Reason For Study: INCREASING MURMUR : :Ordering Physician: MARLON, : :ADRIANNE Performed By: Joe Kennedy : :Referring: ADRIANNE MASON : + + Interpretation Summary 1. Normal LV contractility with EF > 55%. No WMA. No LVH. Grade 1 diastolic dysfunction. 2. Normal RV contractility. 3. Moderate LAE. 4. Mild with mean gradient 18 mmHg and dimensionless indesx 0.40. 5. No obvious intracardiac shunts. Lipomatous intra-atrial septum. 6. No obvious intracardiac masses/thrombi. 7. No hemodynamically significant pericardial effusion. Conclusion: Normal biventricular systolic function with mild aortic valvular stenosis. When compared with previous study, there is mild progression of the aortic valvular stenosis. Procedure: A two-dimensional transthoracic echocardiogram with color flow and Doppler was performed. A contrast injection of Definity was performed to improve assessment of LV function. The study quality was technically difficult. Comparison is made with the echocardiogram of 05/04/2023. The patient was in normal sinus rhythm during the exam. Left Ventricle: The left ventricle is normal in size. There is normal left ventricular wall thickness. There is no ventricular septal defect visualized. The ejection fraction is estimated to be 55-60%. There are no focal wall motion abnormalities. Diastolic parameters suggest probable normal left ventricular diastolic function and normal filling pressures. Right Ventricle: The right ventricle is normal in size and function. Atria: The left atrium is moderately dilated. Right atrial size is normal. There is no Doppler evidence for an interatrial shunt. Mitral Valve: There is mild mitral annular calcification. The mitral valve leaflets appear mildly thickened, but open well. There is trace mitral regurgitation. Aortic Valve: The aortic valve is trileaflet. Calcified NCC. There is mild aortic stenosis. The peak aortic velocity is 2.73 m/sec. The aortic valve mean gradient is 18.0 mmHg. The calculated aortic valve area is 1.3 cm2. No aortic regurgitation is present. Tricuspid Valve: The tricuspid valve is not well visualized, but is grossly normal. There is a trace or physiologic amount of tricuspid regurgitation. Pulmonic Valve: The pulmonic valve is not well seen, but is grossly normal. There is no pulmonic valvular regurgitation. Great Vessels: The aortic root is normal size. The ascending aorta could not be visualized. The pulmonary artery is normal size. The IVC is of normal diameter and collapses greater than 50% with a sniff. This suggests a low right atrial pressure of 3 mm Hg. Pericardium/ Pleura There is no pericardial effusion. There is no pleural effusion. MMode/2D Measurements & Calculations LVIDd: 5.1 cm LVOT diam: 2.0 cm LVIDs: 3.7 cm Ao root diam: 3.1 cm FS: 26.7 % EPSS: 0.68 cm IVSd: 1.0 cm LVPWd: 1.0 cm LV belcher. diameter/BSA (cm/m^2): 2.3 LV sys. diameter/BSA (cm/m^2): 1.7 LA A2 area: 24.9 cm2 RA long axis: 5.4 cm LA A4 area: 27.2 cm2 RA area: 15.0 cm2 LA length (vol): 6.4 cm RA vol: 35.3 ml LA vol: 89.6 ml RA : 16.2 ml/m2 LA vol index: 41.0 ml/m2 IVC diam: 1.2 cm RVD1 (basal): 3.6 cm RVD2 (mid): 3.0 cm TAPSE: 2.5 cm Doppler Measurements & Calculations Ao V2 max: 272.9 cm/sec LVOT Max Vinicio: 105.9 cm/sec Ao V2 mean: 203.4 cm/sec LV V1 max P.5 mmHg Ao max P.8 mmHg LV V1 VTI: 29.0 cm Ao mean P.1 mmHg BRIANNA(I,D): 1.3 cm2 Ao V2 VTI: 72.8 cm BRIANNA(V,D): 1.3 cm2 sev ratio: 0.40 BRIANNA indexed to BSA (cm^2/m^2): 0.60 MV E max vinicio: 100.1 cm/sec PA V2 max: 100.5 cm/sec MV A max vinicio: 103.0 cm/sec PA V2 mean: 67.3 cm/sec MV E/A: 0.97 PA mean P.1 mmHg Med Peak E' Vinicio: 6.2 cm/sec PA pr(Accel): 39.6 mmHg E/E' med: 16.1 Lat Peak E' Vinicio: 7.6 cm/sec E/E' lat: 13.1 E/e' average: 14.6 MV dec time: 0.27 sec SV(OT): 95.1 ml Reading Physician:SHARON
--- NOTE | 2025-02-06 15:40 | DI.MRI.S_ITS ---
PROCEDURE: MR HEAD/BRAIN WO CON INDICATIONS: meningioma follow up TECHNIQUE: Non-contrast axial T1 spin echo, axial T2 fast spin echo, sagittal and axial FLAIR, coronal T2 fast spin echo, axial gradient echo, axial diffusion and ADC through the brain. COMPARISON: [facility], MR, MR STROKE, 01/02/2023, 12:47. FINDINGS: Image quality: Excellent. CSF spaces: Ventricles appear symmetric in size and shape. Basal cisterns are patent. No extra-axial fluid collections. Brain: Again seen left frontal extra-axial mass which measures approximately 2.8 x 2.5 x 2.3 cm, previously 2.6 x 2.3 x 1.9 cm. No intracranial bleeds. There is cerebral volume loss for age. There are periventricular and deep white matter chronic small vessel ischemic changes. Brainstem appears normal. Diffusion-weighted images show no acute infarct. No chronic ischemic insults. Normal intravascular flow voids are present. Skull and face: Calvarial bone marrow is normal in signal. Bilateral lens replacements. Otherwise, the orbits are unremarkable. Sinuses: Sinuses and mastoids are clear. IMPRESSION: Redemonstration of left frontal meningioma which appears mildly increased in size compared to prior, as described above. Otherwise, no acute intracranial abnormalities. Redemonstration of age-related global volume loss and chronic microvascular ischemic changes. Dictated by: Arnol Blum M.D. on 02/06/2025 at 16:03 Approved by: Arnol Blum M.D. on 02/06/2025 at 16:08
== END ==
PROVIDERS: Family Provider Family Medicine; PCP Family Medicine; Referring Provider Family Medicine; Visit Provider Family Medicine
DX: D32.9 Benign neoplasm of meninges, unspecified (principal); R01.1 Cardiac murmur, unspecified; I34.81 Nonrheumatic mitral (valve) annulus calcification; I35.0 Nonrheumatic aortic (valve) stenosis
CPT/HCPCS: 70551; C8929; Q9957

== ENCOUNTER → 2025-03-03 10:33 | Outpatient (CLI) | payer MEDICARE, SELFPAY ==
[2019-10-31 18:40] VITALS: BMI 50.4
--- NOTE | 2025-03-03 10:36 | DI.CT.S_ITS ---
PROCEDURE: CT CHEST WO CON INDICATIONS: 6 month follow up lung nodule TECHNIQUE: Noncontrast 2.0-2.5 mm thick sections acquired from the pulmonary apices to the posterior costophrenic angles. 7 mm thick axial MIP and 5 mm coronal and sagittal reformats were then acquired. For radiation dose reduction, the following was used: automated exposure control, adjustment of mA and/or kV according to patient size. COMPARISON: [facility], CT, CT CHEST WO CON, 01/21/2021, 11:23. [facility], CT, CT CHEST WO CON, 09/17/2024, 13:24. [facility], CT, CT CHEST WO CON, 03/10/2024, 14:02. FINDINGS: Image quality: Diagnostic. Lower Neck: No enlarged lymph nodes. Thyroid: No thyroid nodules which require sonographic follow up, per consensus guidelines. Axillae: No enlarged lymph nodes. Chest Wall: Unremarkable. Bones: Unremarkable. Lungs and Pleura: No pneumothorax or pleural effusions. A peripheral pulmonary nodule at the posterolateral left lower lobe has further enlarged. It was originally seen measuring 9 [address] abdominal CT 08/01/20 and followed up by a chest CT 01/21/21 when it also had measured 9 mm. Most recently it was measured at 1.7 cm but now has increased in size in maximal AP dimension to 1.8 cm and the maximal transverse dimension has further enlarged also. Heart: Heart size is normal. No pericardial effusion. Thoracic Vessels: The aorta and pulmonary arteries demonstrate normal size. Mediastinum and Cristina: No enlarged lymph nodes. Esophagus: No wall thickening. No hiatal hernia. Upper Abdomen: Visualized upper abdomen solid organs and bowel loops appear normal. IMPRESSION: Definite but small interval enlargement of a peripheral posterolateral left lower lobe nodule increasing in both maximal dimension and overall volume. Thoracic surgical nurse practitioner consultation is recommended to determine whether biopsy or PET-CT scanning would be warranted given the slow but definite interchange agent time. Fleischner Society criteria for SOLID lung nodule followup. Nodule size (mm)Low-risk patientHigh-risk patient<6 (single or multiple)No routine followup.Optional CT at 12 months. 6-8 (single or multiple)CT at 6-12 months, then optional CT at 18-24 mo.CT at 6-12 months, then CT at 18-24 months. >8 (single)CT at 3 months, PET-CT, or biopsy. Same as for low-risk pts. >8 (multiple)CT at 3-6 months, then optional CT at 18-24 mo.CT at 3-6 months, then CT at 18-24 months. Fleischner Society criteria for SUB-SOLID lung nodule followup. Solitary pure ground-glass nodules<6 mm (ground glass or part solid)No followup needed. 6 mm or larger (ground glass)CT at 6-12 months to confirm persistence, then CT every 2 years until 5 years.6 mm or larger (part solid)CT at 3-6 months to confirm persistence, then annual CT until 5 years if unchanged and solid component remains <6 mm. Multiple sub-solid nodules<6 mmCT at 3-6 months, then CT consider at 2 & 4 years for high risk patients. [address] at 3-6 months. Subsequent management based on most suspicious lesions. Recommendations do not apply to lung cancer screening, patients with immunosuppression, or patients with known primary cancer. Dictated by: Timbo Webster M.D. on 03/03/2025 at 16:45 Approved by: Timbo Webster M.D. on 03/03/2025 at 16:50
== END ==
PROVIDERS: Family Provider Family Medicine; PCP Family Medicine; Referring Provider Family Medicine; Visit Provider Family Medicine
DX: R91.1 Solitary pulmonary nodule (principal); R91.8 Other nonspecific abnormal finding of lung field
CPT/HCPCS: 71250; Q9967

== ENCOUNTER → 2025-07-21 12:48 | Outpatient (CLI) | payer MEDICARE, SELFPAY ==
[2019-10-31 18:40] VITALS: BMI 50.4
--- NOTE | 2025-07-21 | DI.MRI.S_ITS ---
PROCEDURE: MR HEAD/BRAIN WO/W CON INDICATIONS: MENIGIOMA TECHNIQUE: Noncontrast axial T1 spin echo, axial T2 fast spin echo, sagittal and axial FLAIR, coronal T2 fast spin echo, axial gradient echo, axial diffusion and ADC through the brain. After the administration of contrast, axial and coronal and sagittal T1 spin echo with fat saturation through the brain. COMPARISON: [facility], MR, MR HEAD/BRAIN WO CON, 02/06/2025, 15:08. FINDINGS: Image quality: Excellent. CSF spaces: Basal cisterns are patent. No extra-axial fluid collections. Ventricles are normal in size and shape. Brain: Stable left frontal dural-based mass measuring approximately 3.0 x 2.5 x 2.5 cm, stable compared to prior when remeasured on prior exam. No midline shift. No intracranial. There is cerebral volume loss for age. There is periventricular white matter chronic small vessel ischemic change. The brainstem appears normal. Diffusion-weighted images demonstrate no acute infarct. No chronic ischemic insults. Normal intravascular flow voids are present. Skull and face: Calvarial marrow is normal in signal. Bilateral lens replacements. Otherwise, the orbits are unremarkable. Sinuses: Small air-fluid levels within the bilateral maxillary sinuses. The mastoid air cells are clear. IMPRESSION: Stable left frontal meningioma. Otherwise, no acute intracranial abnormalities or abnormal intracranial enhancement. Dictated by: Arnol Blum M.D. on 07/21/2025 at 16:23 Approved by: Arnol Blum M.D. on 07/21/2025 at 16:27
== END ==
LOC: MRI 12:49
PROVIDERS: PCP Family Medicine; Referring Provider Family Medicine; Visit Provider Neurological Surgery
DX: D32.0 Benign neoplasm of cerebral meninges (principal)
CPT/HCPCS: 70553; A9579